=== PATIENT | female | born 1985 | race Caucasian/White ===

== ENCOUNTER 2016-09-21 02:00 | Emergency (ER) | payer BC, OTHER ==
[~2016-09-21] VITALS: Ht 182.9 cm; Wt 72.6 kg
[2016-09-21] MEDS ORDERED: NS IV 1000 ML 1,000 ML IV STA (02:27)
[2016-09-21] MEDS ORDERED: BUPR300T43 PO (02:27)
[2016-09-21] MEDS ORDERED: CLON1TAB PO (02:27)
[2016-09-21] MEDS ORDERED: CITA20TA12 PO (02:27)
[2016-09-21] MEDS ORDERED: LORazepam INJ 2 MG/ML (ATIVAN) VIAL IVP ONE ×2 (02:30→03:30)
[2016-09-21] MEDS ORDERED: ONDANSETRON 4 MG/2 ML (SDV) Z0FRAN IVP ONE (02:30)
[2016-09-21 02:45] LABS: BILIRUBIN,URINE NEGATIVE (NEGATIVE); KETONES,URINE NEGATIVE (NEGATIVE); LEUKOCYTE ESTERASE ,URINE 3+ (NEGATIVE); NITRITE,URINE POSITIVE (NEGATIVE); PH,URINE 7 (5-9); PROTEIN,URINE NEGATIVE (NEGATIVE); UROBILINOGEN,URINE NORMAL (NORMAL)
--- NOTE | 2016-09-21 02:45 | ED Psychosocial ---
General Chief Complaint: Psych/Social Disorder Stated Complaint: ANXIETY ATTACK,CHEST PAIN,SAUL Nursing Triage Note: PT REPORTS ANXIETY ATTACK STARTING AT 1800 TONIGHT. C/O HEADACHE ET NAUSEA/VOMITING. Source: patient Exam Limitations: no limitations History of Present Illness Time seen by provider: 02:10 Initial Comments Here with report of anxiety attack that started last evening and got worse in the night. She reports that her anxiety was so bad that she started vomiting. She does have medicines for anxiety but has a prescription that she needs to pick Today. Denies fever or chills. Does have history of anxiety and depression disorder and suicide. She does have anxiety but no suicidal plan. She is looking for resources in the community. Timing/Duration: yesterday, getting worse Severity: moderate Associated Symptoms: anxiety, suicidal ideation Allergies and Home Medications Allergies Coded Allergies: Sulfa (Sulfonamide Antibiotics) (Unverified Adverse Reaction, Unknown, ) ciprofloxacin (Unverified Adverse Reaction, Unknown, 09/21/16) Home Medications Alprazolam 0.5 Mg Tablet #7 0.5 MG PO Q12H PRN PRN ANXIETY Prescribed by: FAROOQ CONTRERAS on 09/21/16 0250 Bupropion HCl 300 Mg Tab.er.24h 300 MG PO DAILY (Reported) Cephalexin 500 Mg Tablet #14 500 MG PO BID Prescribed by: FAROOQ CONTRERAS on 09/21/16 0304 Citalopram Hydrobromide 20 Mg Tablet 20 MG PO DAILY (Reported) Clonazepam 1 Mg Tablet 1 MG PO BID (Reported) Constitutional: see HPINo chills, No fever EENTM: no symptoms reported Respiratory: no symptoms reported Cardiovascular: no symptoms reported Gastrointestinal: see HPI nausea vomiting Genitourinary: no symptoms reported Musculoskeletal: no symptoms reported Skin: no symptoms reported Psychiatric/Neurological: See HPI Anxiety Depressed Headache (from crying and from vomiting.) Past Kduhhce-Npysro-Vpqppj Hx Patient Social History Alcohol Use: Denies Use Recreational Drug Use: No Smoking Status: Current Everyday Smoker Recent Foreign Travel: No Contact w/Someone Who Travel: No Recent Infectious Disease Expo: No Recent Hopitalizations: No Seasonal Allergies Seasonal Allergies: Yes Surgeries HX Surgeries: No Respiratory Hx Respiratory Disorders: No Cardiovascular Hx Cardiac Disorders: Yes (MITRAL VALVE PROLAPSE) Neurological Hx Neurological Disorders: Yes Neurological Disorders: Headaches /Migraines Psychosocial Hx Psychiatric Problems: Yes Behavioral Health Disorders: Anxiety, PTSD Reviewed Nursing Assessment Reviewed/Agree w Nursing PMH: Yes Family Medical History Significant Family History: No Pertinent Family Hx Physical Exam Vital Signs Vital Sign - Last 12Hours 09/21/16 02:09 Temp 98.9 Pulse 60 Resp 20 B/P 127/85 Capillary Refill : Less Than 3 Seconds General Appearance: WD/WN no apparent distress HEENT: PERRL/EOMI pharynx normal Neck: full range of motion supple Respiratory: lungs clear normal breath sounds Cardiovascular: regular rate, rhythm no murmur Gastrointestinal: non tender soft Extremities: non-tender normal inspection Neurologic/Psychiatric: alert oriented x 3 Appearance/Memory: appropriate appearance appropriate insight Behavior/Eye Contact: cooperative good eye contact normal speech Thoughts/Hallucinations: normal thought pattern no apparent hallucination Skin: normal color warm/dry Progress/Results/Core Measures Results/Orders Lab Results Laboratory Tests Test 09/21/16 02:40 09/21/16 02:50 Range/Units Ur Tricyclic Antidepressants Screen NEGATIVE NEGATIVE Urine Amphetamines Screen NEGATIVE NEGATIVE Urine Bacteria LARGE H /HPF Urine Barbiturates Screen NEGATIVE NEGATIVE Urine Benzodiazepines Screen NEGATIVE NEGATIVE Urine Bilirubin NEGATIVE NEGATIVE Urine Cannabinoids Screen NEGATIVE NEGATIVE Urine Casts NONE /LPF Urine Clarity SLIGHTLY CLOUDY Urine Cocaine Screen NEGATIVE NEGATIVE Urine Color YELLOW Urine Crystals NONE /LPF Urine Culture Indicated YES Urine Glucose (UA) NEGATIVE NEGATIVE Urine Ketones NEGATIVE NEGATIVE Urine Leukocyte Esterase 3+ H NEGATIVE Urine Methadone Screen NEGATIVE NEGATIVE Urine Methamphetamines Screen NEGATIVE NEGATIVE Urine Mucus NEGATIVE /LPF Urine Nitrite POSITIVE H NEGATIVE Urine Opiates Screen NEGATIVE NEGATIVE Urine Oxycodone Screen NEGATIVE NEGATIVE Urine Phencyclidine Screen NEGATIVE NEGATIVE Urine Propoxyphene Screen NEGATIVE NEGATIVE Urine Protein NEGATIVE NEGATIVE Urine RBC NONE /HPF Urine RBC (Auto) NEGATIVE NEGATIVE Urine Specific [place] 1.010 L 1.016-1.022 Urine Squamous Epithelial Cells 10-25 H /HPF Urine Urobilinogen NORMAL NORMAL MG/DL Urine WBC 50-100 H /HPF Urine pH 7 5-9 Alanine Aminotransferase (ALT/SGPT) 12 0-55 U/L Albumin 4.4 3.2-4.5 G/DL Alkaline Phosphatase 67 40-136 U/L Anion Gap 11 5-14 MMOL/L Aspartate Amino Transf (AST/SGOT) 12 5-34 U/L BUN/Creatinine Ratio 10 Basophils # (Auto) 0.0 0.0-0.1 10^3/uL Basophils (%) (Auto) 1 0-10 % Blood Urea Nitrogen 8 7-18 MG/DL Calcium Level 9.2 8.5-10.1 MG/DL Carbon Dioxide Level 20 L 21-32 MMOL/L Chloride Level 107 98-107 MMOL/L Creatinine 0.81 0.60-1.30 MG/DL Eosinophils # (Auto) 0.4 H 0.0-0.3 10^3/uL Eosinophils (%) (Auto) 5 0-10 % Estimat Glomerular Filtration Rate > 60 Glucose Level 99 70-105 MG/DL Hematocrit 37 35-52 % Hemoglobin 13.0 11.5-16.0 G/DL Lymphocytes # (Auto) 2.0 1.0-4.0 X 10^3 Lymphocytes (%) (Auto) 29 12-44 % Mean Corpuscular Hemoglobin 31 25-34 PG Mean Corpuscular Hemoglobin Concent 35 32-36 G/DL Mean Corpuscular Volume 89 80-99 FL Mean Platelet Volume 11.0 H 7.4-10.4 FL Monocytes # (Auto) 0.8 0.0-1.0 X 10^3 Monocytes (%) (Auto) 12 0-12 % Neutrophils # (Auto) 3.9 1.8-7.8 X 10^3 Neutrophils (%) (Auto) 54 42-75 % Platelet Count 225 130-400 10^3/uL Potassium Level 4.4 3.6-5.0 MMOL/L Red Blood Count 4.15 L 4.35-5.85 10^6/uL Red Cell Distribution Width 13.1 10.0-14.5 % Sodium Level 138 135-145 MMOL/L Total Bilirubin 0.5 0.1-1.0 MG/DL Total Protein 6.8 6.4-8.2 G/DL White Blood Count 7.2 4.3-11.0 10^3/uL My Orders Orders-FAROOQ CONTRERAS MD Cbc With Automated Diff (09/21/16 02:27) Comprehensive Metabolic Panel (09/21/16 02:27) Drug Screen Stat (Urine) (09/21/16 02:27) Ua Culture If Indicated (09/21/16 02:27) Ondansetron Injection (Zofran Injectio (09/21/16 02:30) Ns Iv 1000 Ml (Sodium Chloride 0.9%) (09/21/16 02:27) Lorazepam Injection (Ativan Injection) (09/21/16 02:30) Urine Bedside (09/21/16 02:30) Urine Culture (09/21/16 02:40) Ceftriaxone Injection (Rocephin Injectio (09/21/16 03:15) Lorazepam Injection (Ativan Injection) (09/21/16 03:30) Medications Given in ED Current Medications Medications Dose Ordered Sig/Cipriano Route Start Time Stop Time Status Last Admin Dose Admin Ceftriaxone Sodium/Sodium Chloride 50 ml @ 100 mls/hr ONCE ONCE IV 09/21/16 03:15 09/21/16 03:44 DC 09/21/16 03:19 100 MLS/HR Lorazepam 1 mg ONCE ONCE IVP 09/21/16 03:30 09/21/16 03:31 DC 09/21/16 03:26 1 MG Lorazepam 1 mg 1 mg ONCE ONCE IVP 09/21/16 02:30 09/21/16 02:31 DC 09/21/16 02:51 1 MG Ondansetron HCl 4 mg ONCE ONCE IVP 09/21/16 02:30 09/21/16 02:31 DC 09/21/16 02:49 4 MG Vital Signs/I&O Vital Sign - Last 12Hours 09/21/16 02:09 Temp 98.9 Pulse 60 Resp 20 B/P 127/85 Blood Pressure Mean: 99 Progress Note : Progress Note Seen and evaluated. IV, labs and UA ordered. Normal saline 1 L bolus. Zofran 4 mg IV. Ativan 1 mg IV. Monitor patient. Rocephin 1 g IV for UTI noted. Monitor patient. Repeat Ativan 1 mg IV ordered for continued anxiety. 0415: Much improved but still has mild headache. Toradol 30 mg IV. Discharged home with return precautions. Patient verbalize understanding instructions and agreement with plan. In discussion of doctors, patient states that she would like to switch and had the name of Dr. Chad Vázquez. She would like to follow- up with him. I will give his phone number to her on the discharge instructions. Copy of chart for Dr. Vázquez so he knows what had happened tonight as she is planning on calling him first thing in the morning. Discharged home with return precautions. Patient verbalize understanding instructions and agreement with plan. Departure Impression Impression: Primary Impression: Anxiety Additional Impression: Depression Qualified Code: F32.9 - Major depressive disorder, single episode, unspecified Disposition: 01 HOME, SELF-CARE Condition: Stable Departure-Patient Inst. Decision time for Depature: 02:47 Referrals: DYLON ORTIZ DO (PCP) Primary Care Physician CHAD VÁZQUEZ MD Patient Instructions: Depression, Adult (DC), Panic Disorder (DC), Urinary Tract Infections in Adults Add. Discharge Instructions: All discharge instructions reviewed with patient and/or family. Voiced understanding. Take medications as directed. Follow-up with your doctor for recheck and further evaluation. Call [facility] for referral. You may call the [employer] line for assistance and referral to [facility]. Return for pain, weakness, vomiting, thoughts of suicide, markedly increasing depression or anxiety or other concerns as needed. Scripts Cephalexin 500 Mg [id number] Mg PO BID #14 TAB Prov:FAROOQ CONTRERAS MD 09/21/16 Alprazolam (Xanax)0.5 Mg Tablet0.5 Mg PO Q12H PRN ANXIETY #7 TAB Ref 0 Prov:FAROOQ CONTRERAS MD 09/21/16 FAROOQ CONRTERAS MD Sep 21, 2016 02:45
[2016-09-21] MEDS ORDERED: ALPR0.5T PO (02:50)
[2016-09-21 02:53] LABS: WBC,URINE 50-100 /HPF
[2016-09-21 02:59] LABS: BASOPHILS % (AUTO) 1 % (0-10); EOSINOPHILS # (AUTO) 0.4 10^3/uL (0.0-0.3); EOSINOPHILS % (AUTO) 5 % (0-10); LYMPHOCYTES % (AUTO) 29 % (12-44); MEAN CORPUSCULAR HEMOGLOBIN 31 PG (25-34); MEAN CORPUSCULAR HGB CONC 35 G/DL (32-36); MEAN CORPUSCULAR VOLUME 89 FL (80-99); MONOCYTES # (AUTO) 0.8 X 10^3 (0.0-1.0); MONOCYTES % (AUTO) 12 % (0-12); NEUTROPHILS # (AUTO) 3.9 X 10^3 (1.8-7.8); NEUTROPHILS % (AUTO) 54 % (42-75); PLATELET COUNT 225 10^3/uL (130-400); RED BLOOD COUNT 4.15 10^6/uL (4.35-5.85); RED CELL DISTRIBUTION WIDTH 13.1 % (10.0-14.5); WHITE BLOOD COUNT 7.2 10^3/uL (4.3-11.0)
[2016-09-21] MEDS ORDERED: CEPH500T PO (03:04)
[2016-09-21] MEDS ORDERED: cefTRIAXone INJECTION 1,000 MG in NS (IVPB) 50 ML IV ONE (03:15)
[2016-09-21 03:18] LABS: ALANINE AMINOTRANSFERASE 12 U/L (0-55); ANION GAP 11 MMOL/L (5-14); ASPARTATE AMINO TRANSFERASE 12 U/L (5-34); BILIRUBIN,TOTAL 0.5 MG/DL (0.1-1.0); BLOOD UREA NITROGEN 8 MG/DL (7-18); BUN/CREATININE RATIO 10; CALCIUM 9.2 MG/DL (8.5-10.1); CARBON DIOXIDE 20 MMOL/L (21-32); CHLORIDE 107 MMOL/L (98-107); CREATININE SERUM 0.81 MG/DL (0.60-1.30); GFR ESTIMATED > 60; GLUCOSE 99 MG/DL (70-105); POTASSIUM 4.4 MMOL/L (3.6-5.0); SODIUM 138 MMOL/L (135-145); TOTAL PROTEIN 6.8 G/DL (6.4-8.2)
[2016-09-21 03:19] LABS: ALBUMIN 4.4 G/DL (3.2-4.5)
[2016-09-21] MEDS ORDERED: KETOROLAC 30 MG/ML VIAL IVP STA (04:15)
[2016-09-21 04:44] VITALS: BP 114/66
== END 2016-09-21 04:44 | disposition home or self-care (01) ==
LOC: ER 02:04
DX: F41.9 Anxiety disorder, unspecified (principal); F32.9 Major depressive disorder, single episode, unspecified; F17.210 Nicotine dependence, cigarettes, uncomplicated; Z79.899 Other long term (current) drug therapy
CPT/HCPCS: 36415; 80053; 80306; 81000; 84703; 85025; 87088; 96361; 96365; 96375; 96376

== ENCOUNTER 2016-09-23 20:24 | Emergency (ER) | payer BC ==
[~2016-09-23] VITALS: Ht 182.9 cm; Wt 63.5 kg
[~2016-09-23 20:24] MED LIST: ALPR0.5T PO; BUPR300T43 PO; CEPH500T PO; CITA20TA12 PO; CLON1TAB PO
--- OUTSIDE RECORDS SUMMARY | 2016-09-23 20:30 | XMS REPORT | Continuity of Care Document ---
Author Author [facility] Organization [facility] Address Unknown Phone Unavailable Care Team Providers Care Car Scrubber Name Role Phone DYLON ORTIZ DO PCP Insurance Providers Payer Name Policy Number Subscriber Name Relationship [facility] [id number] Mario Du 18 Self / Same As Patient Advance Directives Directive Response Recorded Date/Time Advance Directives No 09/21/16 2:11am Resuscitation Status Full Code 09/21/16 2:11am Chief Complaint and Reason for Visit Chief Complaint Psych/Social Disorder Reason for Visit Anxiety Depression Problems Active Problems Medical Problem Onset Date Status Anxiety Unknown Acute Depression Unknown Acute Medications Current Home Medications Medication Dose Units Route Directions Days/Qty Instructions Start Date Clonazepam 1 Mg 1 Mg Oral Twice A Day 09/21/16 Bupropion Hcl 300 Mg 300 Mg Oral Daily 09/21/16 Citalopram Hydrobromide 20 Mg 20 Mg Oral Daily 09/21/16 Alprazolam 0.5 Mg 0.5 Mg Oral Every 12 Hours as needed for Anxiety 7 09/21/16 Cephalexin 500 Mg 500 Mg Oral Twice A Day 14 09/21/16 Social History Social History Problem Response Recorded Date/Time Alcohol Use Denies Use 09/21/2016 2:11am Recreational Drug Use No 09/21/2016 2:11am Recent Foreign Travel No 09/21/2016 2:09am Recent Infectious Disease Exposure No 09/21/2016 2:09am Smoking Status Current Everyday Smoker 09/21/2016 2:11am Recent Hopitalizations No 09/21/2016 2:11am Query Response Start Date Stop Date Smoking Status Current Everyday Smoker Hospital Discharge Instructions No hospital discharge instructions. Plan of Care Discharge Date 09/21/16 4:44am Disposition 01 HOME, SELF-CARE Condition at Discharge Stable Instructions/Education Provided Urinary Tract Infections in Adults Depression, Adult (DC) Panic Disorder (DC) Prescriptions See Medication Section Referrals DYLON ORTIZ DO - Primary Care Physician JUDY VÁZQUEZ MD - Additional Instructions/Education All discharge instructions reviewed with patient and/or family. Voiced understanding. Take medications as directed. Follow-up with your doctor for recheck and further evaluation. Call [facility] for referral. You may call the [phone] line for assistance and referral to [facility]. Return for pain, weakness, vomiting, thoughts of suicide, markedly increasing depression or anxiety or other concerns as needed. Functional Status No functional status results. Allergies, Adverse Reactions, Alerts Allergen Type Severity Reaction Status Last Updated Sulfa (Sulfonamide Antibiotics) ([id number]) Adverse Reaction Unknown Active 09/21/16 ciprofloxacin ([id number]) Adverse Reaction Unknown Active 09/21/16 Immunizations No immunization records. Vital Signs Acute Vital Signs Vital Response Date/Time Temperature (Fahrenheit) 98.9 degrees F (97.6 - 99.5) 09/21/2016 2:09am Temperature (Calculated Celsius) 37.85612 degrees C (36.4 - 37.5) 09/21/2016 2:09am Temperature Source Temporal 09/21/2016 2:09am Pulse Rate (adult) 54 bpm (60 - 90) 09/21/2016 4:44am Respiratory Rate 14 bpm (12 - 24) 09/21/2016 4:44am O2 Sat by Pulse Oximetry 100 % (88 - 100) 09/21/2016 4:44am Blood Pressure 114/66 mm Hg 09/21/2016 4:44am Blood Pressure Mean 99 mm Hg 09/21/2016 2:09am Pain Numeric Pain Scale 6 09/21/2016 4:44am Height (Feet) 6 feet 09/21/2016 2:09am Height (Calculated Centimeters) 182.481269 cm 09/21/2016 2:09am Weight (Pounds) 160 pounds 09/21/2016 2:09am Weight (Calculated Kilograms) 72.824183 kilograms 09/21/2016 2:09am Capillary Refill Capillary Refill Less Than 3 Seconds 09/21/2016 2:09am Height 6 ft 0 in Weight 160 lb Body Mass Index 21.7 kg/m^2 Results Laboratory Results Test Name Result Units Flags Reference Collection Date/Time Result Date/ Time Comments White Blood Count 7.2 10^3/uL 4.3-11.0 09/21/2016 2:50am 09/21/2016 3: 01am Red Blood Count 4.15 10^6/uL L 4.35-5.85 09/21/2016 2:50am 09/21/2016 3: 01am Hemoglobin 13.0 G/DL 11.5-16.0 09/21/2016 2:50am 09/21/2016 3:01am Hematocrit 37 % 35-52 09/21/2016 2:50am 09/21/2016 3:01am Mean Corpuscular Volume 89 FL 80-99 09/21/2016 2:50am 09/21/2016 3: 01am Mean Corpuscular Hemoglobin 31 PG 25-34 09/21/2016 2:50am 09/21/2016 3: 01am Mean Corpuscular Hemoglobin Concent 35 G/DL 32-36 09/21/2016 2:50am 3:01am Red Cell Distribution Width 13.1 % 10.0-14.5 09/21/2016 2:50am 2016 3:01am Platelet Count 225 10^3/uL 130-400 09/21/2016 2:50am 09/21/2016 3:01am Mean Platelet Volume 11.0 FL H 7.4-10.4 09/21/2016 2:50am 09/21/2016 3: 01am Neutrophils (%) (Auto) 54 % 42-75 09/21/2016 2:50am 09/21/2016 3:01am Lymphocytes (%) (Auto) 29 % 12-44 09/21/2016 2:50am 09/21/2016 3:01am Monocytes (%) (Auto) 12 % 0-12 09/21/2016 2:50am 09/21/2016 3:01am Eosinophils (%) (Auto) 5 % 0-10 09/21/2016 2:50am 09/21/2016 3:01am Basophils (%) (Auto) 1 % 0-10 09/21/2016 2:50am 09/21/2016 3:01am Neutrophils # (Auto) 3.9 X 10^3 1.8-7.8 09/21/2016 2:50am 09/21/2016 3: 01am Lymphocytes # (Auto) 2.0 X 10^3 1.0-4.0 09/21/2016 2:50am 09/21/2016 3: 01am Monocytes # (Auto) 0.8 X 10^3 0.0-1.0 09/21/2016 2:50am 09/21/2016 3: 01am Eosinophils # (Auto) 0.4 10^3/uL H 0.0-0.3 09/21/2016 2:50am 09/21/2016 3 :01am Basophils # (Auto) 0.0 10^3/uL 0.0-0.1 09/21/2016 2:50am 09/21/2016 3: 01am Urine Color YELLOW 09/21/2016 2:40am 09/21/2016 2:53am Urine Clarity SLIGHTLY CLOUDY 09/21/2016 2:40am 09/21/2016 2:53am Urine pH 7 5-9 09/21/2016 2:40am 09/21/2016 2:53am Urine Specific [place] 1.010 * 1.016-1.022 09/21/2016 2:40am 2016 2:53am Urine Protein NEGATIVE NEGATIVE 09/21/2016 2:40am 09/21/2016 2:53am Urine Glucose (UA) NEGATIVE NEGATIVE 09/21/2016 2:40am 09/21/2016 2: 53am Urine RBC (Auto) NEGATIVE NEGATIVE 09/21/2016 2:40am 09/21/2016 2: 53am Urine Ketones NEGATIVE NEGATIVE 09/21/2016 2:40am 09/21/2016 2:53am Urine Nitrite POSITIVE * NEGATIVE 09/21/2016 2:40am 09/21/2016 2:53am Urine Bilirubin NEGATIVE NEGATIVE 09/21/2016 2:40am 09/21/2016 2: 53am Urine Urobilinogen NORMAL MG/DL NORMAL 09/21/2016 2:40am 09/21/2016 2: 53am Urine Leukocyte Esterase 3+ * NEGATIVE 09/21/2016 2:40am 09/21/2016 2: 53am Urine RBC NONE /HPF 09/21/2016 2:40am 09/21/2016 2:53am Urine WBC 50-100 /HPF * 09/21/2016 2:40am 09/21/2016 2:53am Urine Bacteria LARGE /HPF * 09/21/2016 2:40am 09/21/2016 2:53am Urine Squamous Epithelial Cells 10-25 /HPF * 09/21/2016 2:40am 2016 2:53am Urine Crystals NONE /LPF 09/21/2016 2:40am 09/21/2016 2:53am Urine Casts NONE /LPF 09/21/2016 2:40am 09/21/2016 2:53am Urine Mucus NEGATIVE /LPF 09/21/2016 2:40am 09/21/2016 2:53am Urine Culture Indicated YES 09/21/2016 2:40am 09/21/2016 2:53am Sodium Level 138 MMOL/L 135-145 09/21/2016 2:50am 09/21/2016 3:19am Potassium Level 4.4 MMOL/L 3.6-5.0 09/21/2016 2:50am 09/21/2016 3:19am Chloride Level 107 MMOL/L 98-107 09/21/2016 2:50am 09/21/2016 3:19am Carbon Dioxide Level 20 MMOL/L L 21-32 09/21/2016 2:50am 09/21/2016 3: 19am Anion Gap 11 MMOL/L 5-14 09/21/2016 2:50am 09/21/2016 3:19am Blood Urea Nitrogen 8 MG/DL 7-18 09/21/2016 2:50am 09/21/2016 3:19am Creatinine 0.81 MG/DL 0.60-1.30 09/21/2016 2:50am 09/21/2016 3:19am BUN/Creatinine Ratio 10 09/21/2016 2:50am 09/21/2016 3:19am Estimat Glomerular Filtration Rate > 60 09/21/2016 2:50am 2016 3:19am GFR INTERPRETIVE DATA UNITS FOR ESTIMATED GFR (eGFR): mL/min/1.73 M2 REFERENCE RANGE FOR ESTIMATED GFR (eGFR) eGFR NORMAL eGFR >60 MODERATELY DECREASED eGFR 30-59 SEVERLY DECREASED eGFR 15-29 KIDNEY FAILURE <15 (OR DIALYSIS) Glucose Level 99 MG/DL 70-105 09/21/2016 2:50am 09/21/2016 3:19am Calcium Level 9.2 MG/DL 8.5-10.1 09/21/2016 2:50am 09/21/2016 3:19am Total Bilirubin 0.5 MG/DL 0.1-1.0 09/21/2016 2:50am 09/21/2016 3:19am Alkaline Phosphatase 67 U/L 40-136 09/21/2016 2:50am 09/21/2016 3:19am Aspartate Amino Transf (AST/SGOT) 12 U/L 5-34 09/21/2016 2:50am 2016 3:19am Alanine Aminotransferase (ALT/SGPT) 12 U/L 0-55 09/21/2016 2:50am 09/21 3:19am Total Protein 6.8 G/DL 6.4-8.2 09/21/2016 2:50am 09/21/2016 3:19am Albumin 4.4 G/DL 3.2-4.5 09/21/2016 2:50am 09/21/2016 3:19am Procedures No known history of procedures. Encounters Encounter Location Arrival/Admit Date Discharge/Depart Date Attending Provider Departed Emergency Room [facility] 09/21/16 2:04am 09/21 4:44am FAROOQ CONTRERAS MD Recent Diagnosis
--- NOTE | 2016-09-23 21:07 | ED Psychosocial ---
General Chief Complaint: Psych/Social Disorder Stated Complaint: PANIC ATTACK Nursing Triage Note: PT TO ED 7 W/ S.O. FOR C/O ANXIETY, DEPRESSION, PTSD, FLASHBACKS ONSET OVER PAST FEW DAYS, WORSE TODAY. REPORTS RECENTLY GOT OUT OF ABUSIVE RELATIONSHIP, STATES SHE HAS BEEN "DOING BETTER" UNTIL "SOMETHING AT WORK SET HER OFF." STATES SHE' S LOOKED INTO INPATIENT THERAPY IN [facility] SHE "DOESN'T KNOW WHAT TO DO." Source: patient Exam Limitations: no limitations History of Present Illness Time seen by provider: 21:05 Initial Comments To ER with reports of anxiety and depression. States that she moved to the area from [place] a few months back. She's had persistent anxiety and depression since then. She is on Klonopin and was seen here 2 days ago and given Xanax. She has been calling the save line today to talk to somebody. She is open to the idea of inpatient therapy but would prefer ultimately to pursue outpatient therapy. She has an appointment with Dr. Chad Dow in 2 days. In regards to The Xanax that she was given here 2-3 days ago she states she has not been taking them in his back does not know where they are. She denies suicidal thoughts or homicidal thoughts. Timing/Duration: just prior to arrival Associated Symptoms: anxiety, impaired concentration Allergies and Home Medications Allergies Coded Allergies: Sulfa (Sulfonamide Antibiotics) (Unverified Adverse Reaction, Unknown, ) ciprofloxacin (Unverified Adverse Reaction, Unknown, 09/21/16) Home Medications Alprazolam 0.5 Mg Tablet #7 0.5 MG PO Q12H PRN PRN ANXIETY Prescribed by: FAROOQ CONTRERAS on 09/21/16 0250 Bupropion HCl 300 Mg Tab.er.24h 300 MG PO DAILY (Reported) Cephalexin 500 Mg Tablet #14 500 MG PO BID Prescribed by: FAROOQ CONTRERAS on 09/21/16 0304 Citalopram Hydrobromide 20 Mg Tablet 20 MG PO DAILY (Reported) Clonazepam 1 Mg Tablet 1 MG PO BID (Reported) Constitutional: see HPI EENTM: see HPI Respiratory: no symptoms reported Cardiovascular: no symptoms reported Genitourinary: no symptoms reported Musculoskeletal: no symptoms reported Skin: no symptoms reported Psychiatric/Neurological: See HPI Anxiety Past Cusrbyq-Zsmyly-Ycmwry Hx Patient Social History Alcohol Use: Denies Use Recreational Drug Use: No Smoking Status: Current Everyday Smoker Type Used: Cigarettes Recent Foreign Travel: No Contact w/Someone Who Travel: No Recent Infectious Disease Expo: No Recent Hopitalizations: No Seasonal Allergies Seasonal Allergies: Yes Surgeries HX Surgeries: No Respiratory Hx Respiratory Disorders: No Cardiovascular Hx Cardiac Disorders: Yes (MITRAL VALVE PROLAPSE) Neurological Hx Neurological Disorders: Yes Neurological Disorders: Headaches /Migraines Psychosocial Hx Psychiatric Problems: Yes Behavioral Health Disorders: Anxiety, PTSD, Depression Family Medical History Significant Family History: No Pertinent Family Hx Physical Exam Vital Signs Vital Sign - Last 12Hours 09/23/16 20:34 Temp 97.1 Pulse 58 Resp 24 B/P 137/90 Pulse Ox 100 O2 Delivery Room Air Capillary Refill : Less Than 3 Seconds General Appearance: WD/WN no apparent distress HEENT: PERRL/EOMI normal ENT inspection Neck: non-tender full range of motion Respiratory: no respiratory distress no accessory muscle use Gastrointestinal: normal bowel sounds non tender soft Neurologic/Psychiatric: alert normal mood/affect oriented x 3 Appearance/Memory: appropriate appearance appropriate insight Behavior/Eye Contact: cooperative good eye contact Thoughts/Hallucinations: normal thought pattern no apparent hallucination Skin: normal color warm/dry Progress/Results/Core Measures Results/Orders Lab Results Laboratory Tests Test 09/23/16 21:00 09/23/16 21:22 Range/Units Acetaminophen Level < 10 L 10-30 UG/ML Alanine Aminotransferase (ALT/SGPT) 8 0-55 U/L Albumin 4.2 3.2-4.5 G/DL Alkaline Phosphatase 58 40-136 U/L Anion Gap 9 5-14 MMOL/L Aspartate Amino Transf (AST/SGOT) 11 5-34 U/L BUN/Creatinine Ratio 10 Basophils # (Auto) 0.0 0.0-0.1 10^3/uL Basophils (%) (Auto) 1 0-10 % Blood Urea Nitrogen 8 7-18 MG/DL Calcium Level 8.7 8.5-10.1 MG/DL Carbon Dioxide Level 21 21-32 MMOL/L Chloride Level 110 H 98-107 MMOL/L Creatinine 0.83 0.60-1.30 MG/DL Eosinophils # (Auto) 0.5 H 0.0-0.3 10^3/uL Eosinophils (%) (Auto) 6 0-10 % Estimat Glomerular Filtration Rate > 60 Glucose Level 89 70-105 MG/DL Hematocrit 37 35-52 % Hemoglobin 12.7 11.5-16.0 G/DL Lymphocytes # (Auto) 2.0 1.0-4.0 X 10^3 Lymphocytes (%) (Auto) 25 12-44 % Mean Corpuscular Hemoglobin 31 25-34 PG Mean Corpuscular Hemoglobin Concent 35 32-36 G/DL Mean Corpuscular Volume 89 80-99 FL Mean Platelet Volume 10.5 H 7.4-10.4 FL Monocytes # (Auto) 0.9 0.0-1.0 X 10^3 Monocytes (%) (Auto) 11 0-12 % Neutrophils # (Auto) 4.7 1.8-7.8 X 10^3 Neutrophils (%) (Auto) 58 42-75 % Platelet Count 237 130-400 10^3/uL Potassium Level 3.9 3.6-5.0 MMOL/L Red Blood Count 4.09 L 4.35-5.85 10^6/uL Red Cell Distribution Width 12.8 10.0-14.5 % Salicylates Level < 5.0 L 5.0-20.0 MG/DL Serum Alcohol < 10 <10 MG/DL Sodium Level 140 135-145 MMOL/L Thyroid Stimulating Hormone (TSH) 1.68 0.35-4.94 UIU/ML Total Bilirubin 0.3 0.1-1.0 MG/DL Total Protein 6.7 6.4-8.2 G/DL White Blood Count 8.0 4.3-11.0 10^3/uL Ur Tricyclic Antidepressants Screen NEGATIVE NEGATIVE Urine Amphetamines Screen NEGATIVE NEGATIVE Urine Bacteria TRACE /HPF Urine Barbiturates Screen NEGATIVE NEGATIVE Urine Benzodiazepines Screen POSITIVE H NEGATIVE Urine Bilirubin NEGATIVE NEGATIVE Urine Cannabinoids Screen NEGATIVE NEGATIVE Urine Casts NONE /LPF Urine Clarity CLEAR Urine Cocaine Screen NEGATIVE NEGATIVE Urine Color YELLOW Urine Crystals NONE /LPF Urine Culture Indicated NO Urine Glucose (UA) NEGATIVE NEGATIVE Urine Ketones NEGATIVE NEGATIVE Urine Leukocyte Esterase 1+ H NEGATIVE Urine Methadone Screen NEGATIVE NEGATIVE Urine Methamphetamines Screen NEGATIVE NEGATIVE Urine Mucus NEGATIVE /LPF Urine Nitrite NEGATIVE NEGATIVE Urine Opiates Screen NEGATIVE NEGATIVE Urine Oxycodone Screen NEGATIVE NEGATIVE Urine Phencyclidine Screen NEGATIVE NEGATIVE Urine Test NEGATIVE NEGATIVE Urine Propoxyphene Screen NEGATIVE NEGATIVE Urine Protein NEGATIVE NEGATIVE Urine RBC NONE /HPF Urine RBC (Auto) NEGATIVE NEGATIVE Urine Specific [place] 1.005 L 1.016-1.022 Urine Squamous Epithelial Cells 10-25 H /HPF Urine Urobilinogen NORMAL NORMAL MG/DL Urine WBC 0-2 /HPF Urine pH 7 5-9 My Orders Orders-SWATI TUCKER APRN Cbc With Automated Diff (09/23/16 20:57) Comprehensive Metabolic Panel (09/23/16 20:57) Thyroid Stimulating Hormone (09/23/16 20:57) Ua Culture If Indicated (09/23/16 20:57) Drug Screen Stat (Urine) (09/23/16 20:57) Ekg Tracing (09/23/16 20:57) Hcg,Qualitative Urine (09/23/16 20:57) Salicylate (09/23/16 20:57) Acetaminophen (09/23/16 20:57) Alcohol (09/23/16 20:57) Ondansetron Oral Dissolve Tab (Zofran (09/23/16 21:15) Alprazolam Tablet (Xanax Tablet) (09/23/16 21:15) Ketorolac Injection (Toradol Injection) (09/23/16 21:45) Diphenhydramine Injection (Benadryl Inje (09/23/16 22:00) Medications Given in ED Current Medications Medications Dose Ordered Sig/Cipriano Route Start Time Stop Time Status Last Admin Dose Admin Diphenhydramine HCl 50 mg ONCE ONCE IM 09/23/16 22:00 09/23/16 22:01 DC 09/23/16 21:57 50 MG Ketorolac Tromethamine 60 mg ONCE ONCE IM 09/23/16 21:45 09/23/16 21:46 DC 09/23/16 21:57 60 MG Ondansetron HCl 4 mg ONCE ONCE PO 09/23/16 21:15 09/23/16 21:16 DC 09/23/16 21:20 4 MG Vital Signs/I&O Vital Sign - Last 12Hours 09/23/16 20:34 Temp 97.1 Pulse 58 Resp 24 B/P 137/90 Pulse Ox 100 O2 Delivery Room Air Blood Pressure Mean: 106 Departure Communication Progress Notes 2200-She complained of headaches with Toradol and Benadryl were given intramuscularly. She was still preferred to follow-up with Dr. Dow the outpatient setting Impression Impression: Primary Impression: Anxiety Disposition: HOME, SELF-CARE Condition: Stable Departure-Patient Inst. Decision time for Depature: 22:25 Referrals: CHAD VÁZQUEZ MD (PCP/Family) Primary Care Physician Patient Instructions: Anxiety, Adult (DC) Add. Discharge Instructions: 1. Return to ER for any concerns 2. Follow-up with your doctor next week 3. Medication as directed All discharge instructions reviewed with patient and/or family. Voiced understanding. Scripts Hydroxyzine Pamoate (Vistaril)25 Mg [id number] Mg PO TID PRN ANXIETY #9 CAP Prov:SWATI TUCKER APRN 09/23/16 Copy Copies To 1: CHAD VÁZQUEZ MD, PETER J APRN Sep 23, 2016 21:07
[2016-09-23 21:08] LABS: BASOPHILS % (AUTO) 1 % (0-10); EOSINOPHILS # (AUTO) 0.5 10^3/uL (0.0-0.3); EOSINOPHILS % (AUTO) 6 % (0-10); LYMPHOCYTES % (AUTO) 25 % (12-44); MEAN CORPUSCULAR HEMOGLOBIN 31 PG (25-34); MEAN CORPUSCULAR HGB CONC 35 G/DL (32-36); MEAN CORPUSCULAR VOLUME 89 FL (80-99); MEAN PLATELET VOLUME 10.5 FL (7.4-10.4); MONOCYTES # (AUTO) 0.9 X 10^3 (0.0-1.0); MONOCYTES % (AUTO) 11 % (0-12); NEUTROPHILS # (AUTO) 4.7 X 10^3 (1.8-7.8); NEUTROPHILS % (AUTO) 58 % (42-75); PLATELET COUNT 237 10^3/uL (130-400); RED BLOOD COUNT 4.09 10^6/uL (4.35-5.85); RED CELL DISTRIBUTION WIDTH 12.8 % (10.0-14.5)
[2016-09-23] MEDS ORDERED: ALPRAZolam 0.5 MG (XANAX) TAB PO SCH (21:15)
[2016-09-23] MEDS ORDERED: ONDANSETRON 4 MG (ZOFRAN) ORAL DISSOLVE TAB PO ONE (21:15)
[2016-09-23 21:28] LABS: BILIRUBIN,URINE NEGATIVE (NEGATIVE); KETONES,URINE NEGATIVE (NEGATIVE); LEUKOCYTE ESTERASE ,URINE 1+ (NEGATIVE); NITRITE,URINE NEGATIVE (NEGATIVE); PH,URINE 7 (5-9); PROTEIN,URINE NEGATIVE (NEGATIVE); UROBILINOGEN,URINE NORMAL (NORMAL)
[2016-09-23 21:29] LABS: ALANINE AMINOTRANSFERASE 8 U/L (0-55); ALBUMIN 4.2 G/DL (3.2-4.5); ANION GAP 9 MMOL/L (5-14); ASPARTATE AMINO TRANSFERASE 11 U/L (5-34); BILIRUBIN,TOTAL 0.3 MG/DL (0.1-1.0); BLOOD UREA NITROGEN 8 MG/DL (7-18); BUN/CREATININE RATIO 10; CALCIUM 8.7 MG/DL (8.5-10.1); CARBON DIOXIDE 21 MMOL/L (21-32); CHLORIDE 110 MMOL/L (98-107); CREATININE SERUM 0.83 MG/DL (0.60-1.30); GFR ESTIMATED > 60; GLUCOSE 89 MG/DL (70-105); POTASSIUM 3.9 MMOL/L (3.6-5.0); SALICYLATE < 5.0 MG/DL (5.0-20.0); SODIUM 140 MMOL/L (135-145); TOTAL PROTEIN 6.7 G/DL (6.4-8.2)
[2016-09-23 21:32] LABS: ACETAMINOPHEN < 10 UG/ML (10-30); ALCOHOL < 10 MG/DL (<10)
[2016-09-23 21:36] LABS: WBC,URINE 0-2 /HPF
[2016-09-23] MEDS ORDERED: KETOROLAC 60 MG/2 ML VIAL IM ONE (21:45)
[2016-09-23 21:48] LABS: THYROID STIMULATING HORMONE 1.68 UIU/ML (0.35-4.94)
[2016-09-23] MEDS ORDERED: diphenhydrAMINE 50 MG/ML INJ (BENADRYL) IM ONE (22:00)
[2016-09-23] MEDS ORDERED: HYDR25CA PO (22:27)
[2016-09-23 22:55] VITALS: BP 123/78
== END 2016-09-23 22:55 | disposition home or self-care (01) ==
LOC: EDUNIT# 20:24 → ER 20:26
DX: F41.9 Anxiety disorder, unspecified (principal); F32.9 Major depressive disorder, single episode, unspecified; F43.10 Post-traumatic stress disorder, unspecified; F17.210 Nicotine dependence, cigarettes, uncomplicated; Z79.899 Other long term (current) drug therapy
CPT/HCPCS: 36415; 80053; 80306; 80320; 80329; 81000; 84443; 84703; 85025; 93005; 96372; 99283

== ENCOUNTER 2016-09-24 21:35 | Emergency (ER) | payer BC ==
[~2016-09-24] VITALS: Ht 182.9 cm; Wt 61.2 kg
[~2016-09-24 21:35] MED LIST changes: +HYDR25CA PO
--- OUTSIDE RECORDS SUMMARY | 2016-09-24 21:39 | XMS REPORT | Continuity of Care Document ---
Author Author [facility] Organization [facility] Address Unknown Phone Unavailable Care Team Providers Care Rn Research Name Role Phone DYLON ORTIZ DO PCP Insurance Providers Payer Name Policy Number Subscriber Name Relationship [facility] [id number] Mario Du 16 Self / Same As [...] doctor for recheck and further evaluation. Call [facility] for referral. You may call the [phone] line for assistance and referral to [facility]. Return for pain, weakness, vomiting, thoughts of suicide, markedly increasing depression or anxiety or other concerns as needed. Functional Status No functional status results. Allergies, Adverse Reactions, Alerts Allergen Type Severity Reaction Status Last Updated Sulfa (Sulfonamide Antibiotics) ([id number]) Adverse Reaction Unknown Active 09/21/16 ciprofloxacin ([id number]) Adverse Reaction Unknown Active 09/21/16 Immunizations No immunization records. Vital Signs Acute Vital Signs Vital Response Date/Time Temperature (Fahrenheit) 98.9 degrees F (97.6 - 99.5) 09/21/2016 2:09am Temperature (Calculated Celsius) 37.05485 degrees C (36.4 - 37.5) 09/21/2016 2:09am [...] 6 feet 09/21/2016 2:09am Height (Calculated Centimeters) 182.269830 cm 09/21/2016 2:09am Weight (Pounds) 160 pounds 09/21/2016 2:09am Weight (Calculated Kilograms) 72.554768 kilograms 09/21/2016 2:09am Capillary Refill Capillary Refill [...] 5-9 09/21/2016 2:40am 09/21/2016 2:53am Urine Specific [place] 1.010 * 1.016-1.022 09/21/2016 2:40am 2016 2:53am [...] Date Attending Provider Departed Emergency Room [facility] 09/21/16 2:04am 09/21 4:44am FAROOQ CONTRERAS MD Recent Diagnosis
[2016-09-24 23:51] LABS: BASOPHILS % (AUTO) 0 % (0-10); EOSINOPHILS # (AUTO) 0.5 10^3/uL (0.0-0.3); EOSINOPHILS % (AUTO) 7 % (0-10); LYMPHOCYTES # (AUTO) 2.1 X 10^3 (1.0-4.0); LYMPHOCYTES % (AUTO) 27 % (12-44); MEAN CORPUSCULAR HEMOGLOBIN 31 PG (25-34); MEAN CORPUSCULAR HGB CONC 35 G/DL (32-36); MEAN CORPUSCULAR VOLUME 90 FL (80-99); MONOCYTES # (AUTO) 0.9 X 10^3 (0.0-1.0); MONOCYTES % (AUTO) 11 % (0-12); NEUTROPHILS # (AUTO) 4.2 X 10^3 (1.8-7.8); NEUTROPHILS % (AUTO) 55 % (42-75); PLATELET COUNT 227 10^3/uL (130-400); RED CELL DISTRIBUTION WIDTH 12.9 % (10.0-14.5); WHITE BLOOD COUNT 7.7 10^3/uL (4.3-11.0)
--- NOTE | 2016-09-24 23:57 | ED Psychosocial ---
General Chief Complaint: Psych/Social Disorder Stated Complaint: PANIC ATTACK Nursing Triage Note: PT HERE WITH C/O ANXIETY AND C/O PANIC ATTACK. PT WAS SEEN HERE LAST NIGHT FOR THE SAME THING. Source: patient Exam Limitations: no limitations History of Present Illness Time seen by provider: 23:44 Initial Comments Here with report of anxiety that is uncontrolled as well as significant depression. She denies suicidal or homicidal ideations. She does have history of PTSD from previous relationship and has underlying anxiety. Over the last few days she's had 3 visits to the ER now for panic attacks and worsening symptoms of anxiety and depression. She states that she's had some nausea and vomiting today. She had a headache yesterday and a few days ago. She is finishing treatment for urinary tract infection. She has appointment with a new primary care physician, Dr. Chad Vázquez of [facility] here in [place] that she would feel to go to tomorrow but she feels like this anxiety and depression is too great to be at home. She is requesting inpatient admission if possible. Timing/Duration: week, getting worse Severity: moderate, severe Associated Symptoms: anxiety, impaired concentration, insomnia Allergies and Home Medications Allergies Coded Allergies: Sulfa (Sulfonamide Antibiotics) (Unverified Adverse Reaction, Unknown, ) ciprofloxacin (Unverified Adverse Reaction, Unknown, 09/21/16) Home Medications Alprazolam 0.5 Mg Tablet #7 0.5 MG PO Q12H PRN PRN ANXIETY Prescribed by: FAROOQ CONTRERAS on 09/21/16 0250 Bupropion HCl 300 Mg Tab.er.24h 300 MG PO DAILY (Reported) Cephalexin 500 Mg Tablet #14 500 MG PO BID Prescribed by: FAROOQ CONTRERAS on 09/21/16 0304 Citalopram Hydrobromide 20 Mg Tablet 20 MG PO DAILY (Reported) Clonazepam 1 Mg Tablet 1 MG PO BID (Reported) Hydroxyzine Pamoate 25 Mg Capsule #9 25 MG PO TID PRN PRN ANXIETY Prescribed by: SWATI TUCKER on 09/23/167 Constitutional: see HPINo chills, No fever EENTM: no symptoms reported Respiratory: no symptoms reportedNo cough, No short of breath Cardiovascular: no symptoms reportedNo chest pain, No edema Gastrointestinal: No abdominal pain, No diarrhea, nausea vomiting Genitourinary: no symptoms reported Musculoskeletal: no symptoms reported Skin: no symptoms reported Psychiatric/Neurological: No Symptoms Reported All Other Systems Reviewed Negative Unless Noted: Yes Past Knlhabf-Lzpsxg-Zdxvqk Hx Patient Social History Type Used: Cigarettes Recent Foreign Travel: No Contact w/Someone Who Travel: No Recent Infectious Disease Expo: No Recent Hopitalizations: No Seasonal Allergies Seasonal Allergies: Yes Surgeries HX Surgeries: No Respiratory Hx Respiratory Disorders: No Cardiovascular Hx Cardiac Disorders: Yes (MITRAL VALVE PROLAPSE) Neurological Hx Neurological Disorders: Yes Neurological Disorders: Headaches /Migraines Psychosocial Hx Psychiatric Problems: Yes Behavioral Health Disorders: Anxiety, PTSD, Depression Reviewed Nursing Assessment Reviewed/Agree w Nursing PMH: Yes Family Medical History Significant Family History: No Pertinent Family Hx Physical Exam Vital Signs Vital Sign - Last 12Hours 09/24/16 22:57 Temp 98.8 Pulse 66 Resp 18 B/P 118/76 Pulse Ox 94 O2 Delivery Room Air Capillary Refill : Less Than 3 Seconds General Appearance: WD/WN no apparent distress HEENT: PERRL/EOMI pharynx normal Neck: full range of motion supple Respiratory: lungs clear normal breath sounds Cardiovascular: regular rate, rhythm no murmur Gastrointestinal: non tender soft Extremities: non-tender normal inspection Neurologic/Psychiatric: alert oriented x 3 Appearance/Memory: appropriate appearance appropriate insight neat Behavior/Eye Contact: cooperative good eye contact Thoughts/Hallucinations: normal thought pattern no apparent hallucination Skin: normal color warm/dry Progress/Results/Core Measures Results/Orders Lab Results Laboratory Tests Test 09/24/16 23:45 09/24/16 23:57 Range/Units Acetaminophen Level < 10 L 10-30 UG/ML Alanine Aminotransferase (ALT/SGPT) 10 0-55 U/L Albumin 4.1 3.2-4.5 G/DL Alkaline Phosphatase 63 40-136 U/L Anion Gap 10 5-14 MMOL/L Aspartate Amino Transf (AST/SGOT) 12 5-34 U/L BUN/Creatinine Ratio 9 Basophils # (Auto) 0.0 0.0-0.1 10^3/uL Basophils (%) (Auto) 0 0-10 % Blood Urea Nitrogen 9 7-18 MG/DL Calcium Level 8.7 8.5-10.1 MG/DL Carbon Dioxide Level 19 L 21-32 MMOL/L Chloride Level 111 H 98-107 MMOL/L Creatinine 0.97 0.60-1.30 MG/DL Eosinophils # (Auto) 0.5 H 0.0-0.3 10^3/uL Eosinophils (%) (Auto) 7 0-10 % Estimat Glomerular Filtration Rate > 60 Glucose Level 102 70-105 MG/DL Hematocrit 36 35-52 % Hemoglobin 12.5 11.5-16.0 G/DL Lymphocytes # (Auto) 2.1 1.0-4.0 X 10^3 Lymphocytes (%) (Auto) 27 12-44 % Mean Corpuscular Hemoglobin 31 25-34 PG Mean Corpuscular Hemoglobin Concent 35 32-36 G/DL Mean Corpuscular Volume 90 80-99 FL Mean Platelet Volume 11.0 H 7.4-10.4 FL Monocytes # (Auto) 0.9 0.0-1.0 X 10^3 Monocytes (%) (Auto) 11 0-12 % Neutrophils # (Auto) 4.2 1.8-7.8 X 10^3 Neutrophils (%) (Auto) 55 42-75 % Platelet Count 227 130-400 10^3/uL Potassium Level 3.7 3.6-5.0 MMOL/L Red Blood Count 4.00 L 4.35-5.85 10^6/uL Red Cell Distribution Width 12.9 10.0-14.5 % Salicylates Level < 5.0 L 5.0-20.0 MG/DL Serum Alcohol < 10 <10 MG/DL Sodium Level 140 135-145 MMOL/L Total Bilirubin 0.2 0.1-1.0 MG/DL Total Protein 6.7 6.4-8.2 G/DL White Blood Count 7.7 4.3-11.0 10^3/uL Ur Tricyclic Antidepressants Screen NEGATIVE NEGATIVE Urine Amphetamines Screen NEGATIVE NEGATIVE Urine Bacteria FEW H /HPF Urine Barbiturates Screen NEGATIVE NEGATIVE Urine Benzodiazepines Screen POSITIVE H NEGATIVE Urine Bilirubin 1+ H NEGATIVE Urine Cannabinoids Screen NEGATIVE NEGATIVE Urine Casts NONE /LPF Urine Clarity VERY CLOUDY H Urine Cocaine Screen NEGATIVE NEGATIVE Urine Color YELLOW Urine Crystals NONE /LPF Urine Culture Indicated NO Urine Glucose (UA) NEGATIVE NEGATIVE Urine Ketones NEGATIVE NEGATIVE Urine Leukocyte Esterase 3+ H NEGATIVE Urine Methadone Screen NEGATIVE NEGATIVE Urine Methamphetamines Screen NEGATIVE NEGATIVE Urine Mucus NEGATIVE /LPF Urine Nitrite NEGATIVE NEGATIVE Urine Opiates Screen NEGATIVE NEGATIVE Urine Oxycodone Screen NEGATIVE NEGATIVE Urine Phencyclidine Screen NEGATIVE NEGATIVE Urine Test NEGATIVE NEGATIVE Urine Propoxyphene Screen NEGATIVE NEGATIVE Urine Protein 1+ H NEGATIVE Urine RBC NONE /HPF Urine RBC (Auto) NEGATIVE NEGATIVE Urine Specific [place] 1.020 1.016-1.022 Urine Squamous Epithelial Cells >50 H /HPF Urine Urobilinogen NORMAL NORMAL MG/DL Urine WBC 0-2 /HPF Urine pH 5 5-9 My Orders Orders-FAROOQ CONTRERAS MD Ua Culture If Indicated (09/24/16:) Cbc With Automated Diff (09/24/16:) Comprehensive Metabolic Panel (09/24/16:) Alcohol (09/24/16) Drug Screen Stat (Urine) (09/24/16) Acetaminophen (09/24/16) Salicylate (09/24/16) Saline Lock/Iv-Start (09/24/16) Monitor-Rhythm Ecg Trace Only (09/24/16) Ekg Tracing (09/24/16) Olanzapine Orally Dissolve Tab (Zyprexa (09/25/16 00:00) Hcg,Qualitative Urine (09/25/16 01:27) Medications Given in ED Current Medications Medications Dose Ordered Sig/Cipriano Route Start Time Stop Time Status Last Admin Dose Admin Olanzapine 5 mg ONCE ONCE PO 09/25/16 00:00 09/25/16 00:01 DC 09/25/16 00:19 5 MG Vital Signs/I&O Vital Sign - Last 12Hours 09/24/16 22:57 Temp 98.8 Pulse 66 Resp 18 B/P 118/76 Pulse Ox 94 O2 Delivery Room Air Blood Pressure Mean: 90 Progress Note : Progress Note Seen and evaluated. Labs, EKG and UA ordered for medical clearance. We will pursue finding facility for inpatient treatment. Zyprexa 5 mg by mouth ordered. Monitor patient. 0050: Labs reviewed. No significant findings. Patient is currently in therapy for urinary tract infection and culture from first visit indicates that the organisms are susceptible to the Keflex that was prescribed. Her urine is better today. We will pursue inpatient treatment. 0300: Patient improved. Patient accepted at [facility] for inpatient psychiatric therapy. Dr. Camara accepting. Patient is appreciative and agrees with plan. 0350:2 [facility] via transport service. ECG Initial ECG Impression Date: Sep 24, 2016 Initial ECG Impression Time: 23:44 Initial ECG Rhythm: Normal Sinus Initial ECG Impression: Normal Comment Sinus rhythm with normal axis. No evidence of ST elevation [place]. Interpreted by me. Departure Impression Impression: Primary Impression: Anxiety Additional Impression: Depression Qualified Code: F33.1 - Major depressive disorder, recurrent, moderate Disposition: 02 XFER SHT-TRM HOSP Condition: Stable Transfer Transfer Time: 03:00 Transfer Facility: [facility], [place], Dr. Camara accepting. Method of Transfer: [facility] transport Departure-Patient Inst. Referrals: CHAD VÁZQUEZ MD (PCP/Family) Primary Care Physician FAROOQ CONTRERAS MD Sep 24, 2016 23:57
[2016-09-25] MEDS ORDERED: OLANZapine 5 MG ODT (ZyPREXA ZYDIS) PO ONE
[2016-09-25 00:06] LABS: KETONES,URINE NEGATIVE (NEGATIVE); LEUKOCYTE ESTERASE ,URINE 3+ (NEGATIVE); NITRITE,URINE NEGATIVE (NEGATIVE); PH,URINE 5 (5-9); PROTEIN,URINE 1+ (NEGATIVE); UROBILINOGEN,URINE NORMAL (NORMAL)
[2016-09-25 00:12] LABS: ALANINE AMINOTRANSFERASE 10 U/L (0-55); ALBUMIN 4.1 G/DL (3.2-4.5); ANION GAP 10 MMOL/L (5-14); ASPARTATE AMINO TRANSFERASE 12 U/L (5-34); BILIRUBIN,TOTAL 0.2 MG/DL (0.1-1.0); BLOOD UREA NITROGEN 9 MG/DL (7-18); BUN/CREATININE RATIO 9; CALCIUM 8.7 MG/DL (8.5-10.1); CARBON DIOXIDE 19 MMOL/L (21-32); CHLORIDE 111 MMOL/L (98-107); CREATININE SERUM 0.97 MG/DL (0.60-1.30); GFR ESTIMATED > 60; GLUCOSE 102 MG/DL (70-105); POTASSIUM 3.7 MMOL/L (3.6-5.0); SALICYLATE < 5.0 MG/DL (5.0-20.0); SODIUM 140 MMOL/L (135-145); TOTAL PROTEIN 6.7 G/DL (6.4-8.2)
[2016-09-25 00:15] LABS: ACETAMINOPHEN < 10 UG/ML (10-30); ALCOHOL < 10 MG/DL (<10)
[2016-09-25 00:18] LABS: BILIRUBIN,URINE 1+ (NEGATIVE); SQUAMOUS EPITHELIAL CELL,UR >50 /HPF; WBC,URINE 0-2 /HPF
[2016-09-25 03:46] VITALS: BP 117/47
== END 2016-09-25 03:50 | disposition short-term general hospital (02) ==
LOC: ER 21:35 → EDUNIT# 21:35 → ER 09-25 03:50
DX: F41.9 Anxiety disorder, unspecified (principal); F33.9 Major depressive disorder, recurrent, unspecified; Z79.899 Other long term (current) drug therapy
CPT/HCPCS: 36415; 80053; 80306; 80320; 80329; 81000; 84703; 85025; 93005

== ENCOUNTER 2016-10-16 18:36 | Emergency (ER) | payer BC ==
[~2016-10-16] VITALS: Ht 182.9 cm; Wt 61.2 kg
[2016-10-16] MEDS ORDERED: NS IV 1000 ML 1,000 ML IV ONE (19:06)
[2016-10-16] MEDS ORDERED: PROMETHAZINE INJ 25 MG/ML (PHENERGAN) AMP IVP ONE (19:15)
[2016-10-16 19:36] LABS: BASOPHILS # (AUTO) 0.1 10^3/uL (0.0-0.1); BASOPHILS % (AUTO) 1 % (0-10); EOSINOPHILS % (AUTO) 11 % (0-10); LYMPHOCYTES # (AUTO) 1.9 X 10^3 (1.0-4.0); LYMPHOCYTES % (AUTO) 21 % (12-44); MEAN CORPUSCULAR HEMOGLOBIN 31 PG (25-34); MEAN CORPUSCULAR HGB CONC 34 G/DL (32-36); MEAN CORPUSCULAR VOLUME 91 FL (80-99); MEAN PLATELET VOLUME 9.7 FL (7.4-10.4); MONOCYTES # (AUTO) 1.2 X 10^3 (0.0-1.0); MONOCYTES % (AUTO) 13 % (0-12); NEUTROPHILS # (AUTO) 4.9 X 10^3 (1.8-7.8); NEUTROPHILS % (AUTO) 54 % (42-75); PLATELET COUNT 302 10^3/uL (130-400); RED BLOOD COUNT 3.68 10^6/uL (4.35-5.85); RED CELL DISTRIBUTION WIDTH 13.7 % (10.0-14.5)
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
[2016-10-16 19:55] LABS: ALANINE AMINOTRANSFERASE 23 U/L (0-55); ALBUMIN 3.9 G/DL (3.2-4.5); ANION GAP 10 MMOL/L (5-14); ASPARTATE AMINO TRANSFERASE 14 U/L (5-34); BILIRUBIN,TOTAL 0.2 MG/DL (0.1-1.0); BLOOD UREA NITROGEN 10 MG/DL (7-18); BUN/CREATININE RATIO 14; CALCIUM 8.6 MG/DL (8.5-10.1); CARBON DIOXIDE 21 MMOL/L (21-32); CHLORIDE 107 MMOL/L (98-107); CREATININE SERUM 0.74 MG/DL (0.60-1.30); GFR ESTIMATED > 60; GLUCOSE 139 MG/DL (70-105); POTASSIUM 3.9 MMOL/L (3.6-5.0); SODIUM 138 MMOL/L (135-145); TOTAL PROTEIN 6.8 G/DL (6.4-8.2)
[2016-10-16] MEDS ORDERED: DIAZEPAM 5 MG (VALIUM) TABLET PO ONE (20:00)
[2016-10-16 20:53] LABS: BILIRUBIN,URINE NEGATIVE (NEGATIVE); KETONES,URINE NEGATIVE (NEGATIVE); LEUKOCYTE ESTERASE ,URINE NEGATIVE (NEGATIVE); NITRITE,URINE NEGATIVE (NEGATIVE); PH,URINE 6.5 (5-9); PROTEIN,URINE NEGATIVE (NEGATIVE); UROBILINOGEN,URINE NORMAL (NORMAL)
[2016-10-16 21:02] LABS: WBC,URINE RARE /HPF
[2016-10-16 21:03] LABS: SQUAMOUS EPITHELIAL CELL,UR 0-2 /HPF
[2016-10-16 21:25] VITALS: BP 133/86
== END 2016-10-16 21:25 | disposition home or self-care (01) ==
LOC: EDUNIT# 18:36 → ER 18:38
DX: F41.9 Anxiety disorder, unspecified (principal); R11.2 Nausea with vomiting, unspecified; F43.10 Post-traumatic stress disorder, unspecified; F17.210 Nicotine dependence, cigarettes, uncomplicated; Z79.899 Other long term (current) drug therapy
CPT/HCPCS: 36415; 80053; 81000; 83735; 84703; 85025; 96361; 96374

== ENCOUNTER 2016-10-17 13:47 | Emergency (ER) | payer BC ==
[~2016-10-17] VITALS: Ht 182.9 cm; Wt 70.8 kg
--- NOTE | 2016-10-17 14:04 | ED Psychosocial ---
General Chief Complaint: Psych/Social Disorder Stated Complaint: ANXIETY ATTACK Source: patient Exam Limitations: no limitations History of Present Illness Time seen by provider: 14:03 Initial Comments Patient presents to the emergency room for the fifth time in 1 month with complaints of anxiety. She states that she was formerly on benzodiazepines for the anxiety that they fell out of her And she lost them all. She would like me to refill them as her primary care provider refuses to do so. She was here last night asking for the same thing. She was here 2 visits ago and was transferred to the mental health facility inpatient at [place] but she was there for 24 hours before leaving AGAINST MEDICAL ADVICE. She voices no thoughts of self-harm or suicidal ideations. Timing/Duration: just prior to arrival Severity: moderate Associated Symptoms: anxiety Allergies and Home Medications Allergies Coded Allergies: Sulfa (Sulfonamide Antibiotics) (Unverified Adverse Reaction, Unknown, ) ciprofloxacin (Unverified Adverse Reaction, Unknown, 09/21/16) Home Medications Alprazolam 0.5 Mg Tablet, 0.5 MG PO Q12H PRN for ANXIETY, #7 Ref 0 Prescribed by: FAROOQ CONTRERAS on 09/21/16 0250 Bupropion HCl 300 Mg Tab.er.24h, 300 MG PO DAILY, (Reported) Cephalexin 500 Mg Tablet, 500 MG PO BID, #14 Prescribed by: FAROOQ CONTRERAS on 09/21/16 0304 Citalopram Hydrobromide 20 Mg Tablet, 20 MG PO DAILY, (Reported) Clonazepam 1 Mg Tablet, 1 MG PO BID, (Reported) Hydroxyzine Pamoate 25 Mg Capsule, 25 MG PO TID PRN for ANXIETY, #9 Prescribed by: SWATI TUCKER on 09/23/167 Constitutional: see HPI EENTM: see HPI Respiratory: no symptoms reported Cardiovascular: no symptoms reported Genitourinary: no symptoms reported Musculoskeletal: see HPI Skin: no symptoms reported Psychiatric/Neurological: See HPI, Anxiety Past Mlrnmkt-Egpggy-Zwjqmm Hx Patient Social History Type Used: Cigarettes 2nd Hand Smoke Exposure: No Recent Foreign Travel: No Contact w/Someone Who Travel: No Recent Hopitalizations: No Seasonal Allergies Seasonal Allergies: Yes Surgeries HX Surgeries: No Respiratory Hx Respiratory Disorders: No Cardiovascular Hx Cardiac Disorders: Yes (MITRAL VALVE PROLAPSE) Cardiac Disorders: Valvular Heart Disease Neurological Hx Neurological Disorders: Yes Neurological Disorders: Headaches /Migraines Genitourinary Hx Genitourinary Disorders: No Gastrointestinal Hx Gastrointestinal Disorders: No Musculoskeletal Hx Musculoskeletal Disorders: Yes Musculoskeletal Disorders: Fractures Endocrine Hx Endocrine Disorders: No HEENT HX ENT Disorders: No Cancer Hx Cancer: No Psychosocial Hx Psychiatric Problems: Yes Behavioral Health Disorders: Anxiety, PTSD, Depression Family Medical History Significant Family History: Cancer, Psychiatric Problems, Other Conditions/Hx Physical Exam Vital Signs Vital Sign - Last 12Hours 10/17/16 13:55 Temp 100.6 Pulse 90 Resp 18 B/P (MAP) 155/99 Pulse Ox 96 Capillary Refill : General Appearance: WD/WN, no apparent distress HEENT: PERRL/EOMI, normal ENT inspection Neck: non-tender, full range of motion Respiratory: no respiratory distress, no accessory muscle use Cardiovascular: regular rate, rhythm, no murmur Gastrointestinal: non tender, soft Neurologic/Psychiatric: alert, normal mood/affect, oriented x 3 Appearance/Memory: appropriate appearance, appropriate insight Behavior/Eye Contact: cooperative, good eye contact Thoughts/Hallucinations: normal thought pattern, no apparent hallucination Skin: normal color, warm/dry Progress/Results/Core Measures Results/Orders My Orders Orders - SWATI TUCKER APRN Diazepam Tablet (Valium Tablet) (10/17/16 14:15) Vital Signs/I&O Vital Sign - Last 12Hours 10/17/16 13:55 Temp 100.6 Pulse 90 Resp 18 B/P (MAP) 155/99 Pulse Ox 96 Departure Communication Progress Notes 1427-I have moved the patient's appointment up (mental health happened to have an opening today) to 430 p.m. today at [address] Impression Impression: Primary Impression: Anxiety Disposition: 01 HOME, SELF-CARE Condition: Stable Departure-Patient Inst. Decision time for Depature: 14:05 Referrals: JUDY VÁZQUEZ MD (PCP/Family) Primary Care Physician Patient Instructions: Panic Disorder (DC) Add. Discharge Instructions: 1. You must follow-up with your mental health provider to refill any medications. They will not be refilled in the emergency room 2. Call [facility] at [phone] for any mental health emergencies 3. Your scheduled to see mental health today at 430 [address] at [address] Do not miss this appointment 4. 5. All discharge instructions reviewed with patient and/or family. Voiced understanding. SWATI TUCKER APRN Oct 17, 2016 14:04
[2016-10-17] MEDS ORDERED: DIAZEPAM 5 MG (VALIUM) TABLET PO ONE ×2 (14:15→14:45)
[2016-10-17 14:34] VITALS: BP 155/99
== END 2016-10-17 14:34 | disposition home or self-care (01) ==
LOC: EDUNIT# 13:47 → ER 13:49
DX: F41.9 Anxiety disorder, unspecified (principal)
CPT/HCPCS: 99283

== ENCOUNTER 2016-11-18 11:53 | Emergency (ER) | payer SELFPAY ==
[~2016-11-18] VITALS: Ht 182.9 cm; Wt 72.6 kg
[2016-11-18] MEDS ORDERED: GABA-488 PO (12:05)
[2016-11-18 12:13] LABS: BILIRUBIN,URINE NEGATIVE (NEGATIVE); KETONES,URINE NEGATIVE (NEGATIVE); LEUKOCYTE ESTERASE ,URINE 2+ (NEGATIVE); NITRITE,URINE NEGATIVE (NEGATIVE); PH,URINE 5 (5-9); PROTEIN,URINE NEGATIVE (NEGATIVE); UROBILINOGEN,URINE NORMAL (NORMAL)
--- NOTE | 2016-11-18 12:14 | ED GU-Female ---
General Chief Complaint: -Female Stated Complaint: PAINFUL URINATION/BACK PAIN/VOMITING Nursing Triage Note: to ER with complaints of burning with urination and left lower back pain x 3 days. Patient reports that she vomited last night. Nursing Sepsis Screen: No Definite Risk Source: patient Exam Limitations: no limitations History of Present Illness Time seen by provider: 12:13 Initial Comments To ER with low back pain, nausea vomiting, suprapubic pain for 3 days. She also has yellowish vaginal discharge. Timing/Duration: constant, getting worse Severity/Quality: moderate, cramping Location: suprapubic Radiation: back Activities at Onset: none, emotional stress Associated Symptoms: dysuria, lower back pain, nausea/vomiting Allergies and Home Medications Allergies Coded Allergies: Sulfa (Sulfonamide Antibiotics) (Unverified Adverse Reaction, Unknown, ) ciprofloxacin (Unverified Adverse Reaction, Unknown, 11/18/16) Home Medications Citalopram Hydrobromide 20 Mg Tablet, 20 MG PO DAILY, (Reported) Gabapentin 300 Mg Capsule, 300 MG PO TID, (Reported) Hydroxyzine Pamoate 25 Mg Capsule, 25 MG PO TID PRN for ANXIETY, #9 Prescribed by: SWATI TUCKER on 09/23/162226 Constitutional: see HPI, No chills, No fever EENTM: see HPI Respiratory: no symptoms reported Cardiovascular: no symptoms reported Genitourinary: no symptoms reported Musculoskeletal: see HPI, back pain Skin: no symptoms reported Psychiatric/Neurological: No Symptoms Reported Endocrine: No Symptoms Reported Past Chcokez-Vslede-Avncne Hx Patient Social History Alcohol Use: Denies Use Recreational Drug Use: No Smoking Status: Current Everyday Smoker Type Used: Cigarettes 2nd Hand Smoke Exposure: Yes Recent Foreign Travel: No Contact w/Someone Who Travel: No Recent Infectious Disease Expo: No Recent Hopitalizations: No Immunizations Up To Date Tetanus Booster (TDap): Less than 5yrs Seasonal Allergies Seasonal Allergies: Yes Surgeries HX Surgeries: No Respiratory Hx Respiratory Disorders: No Cardiovascular Hx Cardiac Disorders: Yes (MITRAL VALVE PROLAPSE) Cardiac Disorders: Valvular Heart Disease Neurological Hx Neurological Disorders: Yes Neurological Disorders: Headaches /Migraines Genitourinary Hx Genitourinary Disorders: No Genitourinary Disorders: Kidney Infection Gastrointestinal Hx Gastrointestinal Disorders: No Musculoskeletal Hx Musculoskeletal Disorders: Yes Musculoskeletal Disorders: Fractures Endocrine Hx Endocrine Disorders: No HEENT HX ENT Disorders: No Cancer Hx Cancer: No Psychosocial Hx Psychiatric Problems: Yes Behavioral Health Disorders: Anxiety, PTSD, Depression Family Medical History Significant Family History: Cancer, Psychiatric Problems, Other Conditions/Hx Physical Exam Vital Signs Vital Sign - Last 12Hours 11/18/16 12:00 Temp 98.5 Pulse 75 Resp 16 B/P (MAP) 163/91 Pulse Ox 99 O2 Delivery Room Air Capillary Refill : Less Than 3 Seconds General Appearance: WD/WN, no apparent distress HEENT: PERRL/EOMI, normal ENT inspection Neck: non-tender, full range of motion Respiratory: no respiratory distress, no accessory muscle use Gastrointestinal: normal bowel sounds, non tender Pelvic: normal external exam, No discharge, other (pelvic exam done with FRANCI Acosta at the bedside. Unremarkable exam with a normal-appearing cervix without discharge or cervical motion tenderness) Extremities: normal range of motion, non-tender Neurologic/Psychiatric: alert, normal mood/affect, oriented x 3 Skin: normal color, warm/dry Progress/Results/Core Measures Results/Orders Lab Results Laboratory Tests Test 11/18/16 12:06 Range/Units Urine Color YELLOW Urine Clarity VERY CLOUDY H Urine pH 5 5-9 Urine Specific [place] 1.015 L 1.016-1.022 Urine Protein NEGATIVE NEGATIVE Urine Glucose (UA) NEGATIVE NEGATIVE Urine Ketones NEGATIVE NEGATIVE Urine Nitrite NEGATIVE NEGATIVE Urine Bilirubin NEGATIVE NEGATIVE Urine Urobilinogen NORMAL NORMAL MG/DL Urine Leukocyte Esterase 2+ H NEGATIVE Urine RBC (Auto) 1+ H NEGATIVE Urine RBC 0-2 /HPF Urine WBC 2-5 /HPF Urine Squamous Epithelial Cells 10-25 H /HPF Urine Crystals NONE /LPF Urine Bacteria LARGE H /HPF Urine Casts NONE /LPF Urine Mucus NEGATIVE /LPF Urine Culture Indicated YES My Orders Orders - SWATI TUCKER APRN Ua Culture If Indicated (11/18/16 11:56) Urine Bedside (11/18/16 11:56) Urine Culture (11/18/16 12:06) Wet Prep (11/18/16 12:32) Neisseria Gonorrhea Dna (11/18/16 12:32) Chlamydia Dna (11/18/16 12:32) Genital Culture (11/18/16 12:32) Ketorolac Injection (Toradol Injection) (11/18/16 12:45) Ondansetron Oral Dissolve Tab (Zofran (11/18/16 12:45) Medications Given in ED Current Medications Medications Dose Ordered Sig/Cipriano Route Start Time Stop Time Status Last Admin Dose Admin Ketorolac Tromethamine 60 mg ONCE ONCE IM 11/18/16 12:45 11/18/16 12:46 DC 11/18/16 12:38 60 MG Ondansetron HCl 4 mg ONCE ONCE PO 11/18/16 12:45 11/18/16 12:46 DC 11/18/16 12:38 4 MG Vital Signs/I&O Vital Sign - Last 12Hours 11/18/16 11/18/16 12:00 12:38 Temp 98.5 98.5 Pulse 75 Resp 16 B/P (MAP) 163/91 Pulse Ox 99 O2 Delivery Room Air Blood Pressure Mean: 115 Departure Impression Impression: Primary Impression: Urinary tract infection Disposition: 01 HOME, SELF-CARE Condition: Stable Departure-Patient Inst. Decision time for Depature: 13:12 Referrals: JUDY VÁZQUEZ MD (PCP/Family) Primary Care Physician Patient Instructions: Urinary Tract Infection, Adult (DC) Add. Discharge Instructions: 1. Antibiotics as directed 2. Drink clear fluids 3. Return to ER for any concerns or worsening symptoms All discharge instructions reviewed with patient and/or family. Voiced understanding. Scripts Cefuroxime Axetil (Cefuroxime) 250 Mg Tablet 250 MG PO BID, #10 TAB Prov: SWATI TUCKER APRN 11/18/16 SWATI TUCKER APRN November 18, 2016 12:14
[2016-11-18] MEDS ORDERED: ONDANSETRON 4 MG (ZOFRAN) ORAL DISSOLVE TAB PO ONE (12:45)
[2016-11-18] MEDS ORDERED: KETOROLAC 60 MG/2 ML VIAL IM ONE (12:45)
[2016-11-18] MEDS ORDERED: CEFU250T80 PO (13:13)
[2016-11-18 13:37] VITALS: BP 155/77
== END 2016-11-18 13:37 | disposition home or self-care (01) ==
LOC: EDUNIT# 11:53 → ER 11:55
DX: N39.0 Urinary tract infection, site not specified (principal); R11.2 Nausea with vomiting, unspecified; F17.210 Nicotine dependence, cigarettes, uncomplicated
CPT/HCPCS: 36415; 81000; 84703; 87070; 87088; 87186; 87210; 87491; 87591; 96372; 99284

== ENCOUNTER → 2017-06-26 | Outpatient (CLI) | payer MEDICAID ==
[~2017-06-26] MED LIST changes: +CEFU250T80 PO; +GABA-488 PO
== END ==
LOC: WSo 15:34
PROVIDERS: ATTEND Obstetrics & Gynecology
DX: O36.0990 Maternal care for other rhesus isoimmunization, unspecified trimester, not applicable or unspecified (principal); Z23 Encounter for immunization
CPT/HCPCS: 96372

== ENCOUNTER 2017-07-21 00:01 | Outpatient (CLI) | payer MEDICAID ==
[~2017-07-21] VITALS: Ht 182.9 cm; Wt 107.0 kg
[2017-07-21 00:16] VITALS: BP 129/68
[2017-07-21 00:22] LABS: BILIRUBIN,URINE NEGATIVE (NEGATIVE); CLARITY,URINE CLEAR; COLOR,URINE YELLOW; GLUCOSE, URINE (UA) NEGATIVE (NEGATIVE); KETONES,URINE NEGATIVE (NEGATIVE); LEUKOCYTE ESTERASE ,URINE 3+ (NEGATIVE); NITRITE,URINE NEGATIVE (NEGATIVE); PH,URINE 6 (5-9); PROTEIN,URINE 1+ (NEGATIVE); UROBILINOGEN,URINE NORMAL (NORMAL)
[2017-07-21] MEDS ORDERED: D5 LR IV SOLUTION 1,000 ML IV ONE (00:26)
[2017-07-21] MEDS ORDERED: ONDANSETRON 4 MG/2 ML (SDV) Z0FRAN ONE (00:26)
[2017-07-21] MEDS ORDERED: ONDANSETRON 4 MG/2 ML (SDV) Z0FRAN IVP ONE (00:30)
[2017-07-21] MEDS ORDERED: D5 LR IV SOLUTION 1,000 ML IV SCH (00:30)
[2017-07-21] MEDS ORDERED: MIRT30TA PO (00:31)
[2017-07-21] MEDS ORDERED: ALPR0.5T PO (00:32)
[2017-07-21] MEDS ORDERED: LORA-407 PO (00:32)
[2017-07-21] MEDS ORDERED: LURA40TA3 PO (00:32)
[2017-07-21 00:36] LABS: BACTERIA,URINE MODERATE /HPF
[2017-07-21 00:44] LABS: BASOPHILS % (AUTO) 0 % (0-10); EOSINOPHILS # (AUTO) 0.4 10^3/uL (0.0-0.3); EOSINOPHILS % (AUTO) 3 % (0-10); HEMATOCRIT 29 % (35-52); HEMOGLOBIN 9.9 G/DL (11.5-16.0); LYMPHOCYTES # (AUTO) 2.3 X 10^3 (1.0-4.0); LYMPHOCYTES % (AUTO) 21 % (12-44); MEAN CORPUSCULAR HEMOGLOBIN 30 PG (25-34); MEAN CORPUSCULAR HGB CONC 34 G/DL (32-36); MEAN CORPUSCULAR VOLUME 89 FL (80-99); MEAN PLATELET VOLUME 10.3 FL (7.4-10.4); MONOCYTES # (AUTO) 1.2 X 10^3 (0.0-1.0); MONOCYTES % (AUTO) 11 % (0-12); NEUTROPHILS % (AUTO) 64 % (42-75); PLATELET COUNT 286 10^3/uL (130-400); RED BLOOD COUNT 3.31 10^6/uL (4.35-5.85); RED CELL DISTRIBUTION WIDTH 13.9 % (10.0-14.5); WHITE BLOOD COUNT 10.8 10^3/uL (4.3-11.0)
[2017-07-21 01:04] LABS: ALANINE AMINOTRANSFERASE 12 U/L (0-55); ALBUMIN 3.2 GM/DL (3.2-4.5); ALKALINE PHOSPHATASE 91 U/L (40-136); BILIRUBIN,TOTAL 0.2 MG/DL (0.1-1.0); BUN/CREATININE RATIO 17; CALCIUM 8.8 MG/DL (8.5-10.1); CARBON DIOXIDE 21 MMOL/L (21-32); CHLORIDE 107 MMOL/L (98-107); CREATININE SERUM 0.53 MG/DL (0.60-1.30); GFR ESTIMATED > 60; GLUCOSE 109 MG/DL (70-105); POTASSIUM 3.6 MMOL/L (3.6-5.0); SODIUM 137 MMOL/L (135-145); TOTAL PROTEIN 5.8 GM/DL (6.4-8.2)
[2017-07-21] MEDS ORDERED: CITRIC ACID/SOB CIT (BICITRA) 30 ML UDC ONE (01:15)
[2017-07-21] MEDS ORDERED: CITRIC ACID/SOB CIT (BICITRA) 30 ML UDC PO ONE (01:30)
[2017-07-21 01:49] VITALS: BP 119/59
[2017-07-21] MEDS ORDERED: CEPH-507 PO (17:27)
[2017-07-21] MEDS ORDERED: ONDA4TAB8 SL (17:27)
--- NOTE | 2017-07-22 15:38 | Physician Query-Final Dx ---
JADIEN MARTÍNEZ 07/22/17 1538: Clinic Account Progress/Dx Physician Query: Please give diagnosis Date of Service Jul 21, 2017 at 00:01 STEPHANIE CLAYTON MD 07/24/17 0813: Clinic Account Progress/Dx DIAGNOSIS: Diagnosis false labor JAIDEN MARTÍNEZ Jul 22, 2017 15:38 STEPHANIE CLAYTON MD Jul 24, 2017 08:13
== END 2017-07-21 02:20 | disposition home or self-care (01) ==
LOC: LDRP 00:01 → WSo 00:01
PROVIDERS: ATTEND Obstetrics & Gynecology
DX: O47.03 False labor before 37 completed weeks of gestation, third trimester (principal); Z3A.34 34 weeks gestation of pregnancy
CPT/HCPCS: 36415; 80053; 81000; 82570; 84156; 85025; 87077; 87088; 87186; 96361; 96374; 99214

== ENCOUNTER 2017-07-21 13:21 | Emergency (ER) | payer MEDICAID ==
[~2017-07-21] VITALS: Ht 182.9 cm; Wt 81.6 kg
[~2017-07-21 13:21] MED LIST changes: +LORA-407 PO; +LURA40TA3 PO; +MIRT30TA PO
[2017-07-21 13:48] LABS: BILIRUBIN,URINE NEGATIVE (NEGATIVE); CLARITY,URINE CLEAR; COLOR,URINE YELLOW; GLUCOSE, URINE (UA) NEGATIVE (NEGATIVE); KETONES,URINE NEGATIVE (NEGATIVE); LEUKOCYTE ESTERASE ,URINE 1+ (NEGATIVE); NITRITE,URINE NEGATIVE (NEGATIVE); PH,URINE 7 (5-9); PROTEIN,URINE NEGATIVE (NEGATIVE); UROBILINOGEN,URINE NORMAL (NORMAL)
[2017-07-21 13:54] LABS: BACTERIA,URINE MODERATE /HPF
[2017-07-21] MEDS ORDERED: NS IV 1000 ML 1,000 ML IV ONE (14:47)
[2017-07-21 15:05] LABS: BASOPHILS % (AUTO) 0 % (0-10); EOSINOPHILS # (AUTO) 0.3 10^3/uL (0.0-0.3); EOSINOPHILS % (AUTO) 3 % (0-10); HEMATOCRIT 28 % (35-52); HEMOGLOBIN 9.6 G/DL (11.5-16.0); LYMPHOCYTES # (AUTO) 2.4 X 10^3 (1.0-4.0); LYMPHOCYTES % (AUTO) 21 % (12-44); MEAN CORPUSCULAR HEMOGLOBIN 31 PG (25-34); MEAN CORPUSCULAR HGB CONC 35 G/DL (32-36); MEAN CORPUSCULAR VOLUME 89 FL (80-99); MEAN PLATELET VOLUME 10.2 FL (7.4-10.4); MONOCYTES % (AUTO) 9 % (0-12); NEUTROPHILS # (AUTO) 7.6 X 10^3 (1.8-7.8); NEUTROPHILS % (AUTO) 68 % (42-75); PLATELET COUNT 281 10^3/uL (130-400); RED BLOOD COUNT 3.13 10^6/uL (4.35-5.85); WHITE BLOOD COUNT 11.3 10^3/uL (4.3-11.0)
[2017-07-21] MEDS ORDERED: cefTRIAXone INJECTION 1,000 MG in NS (IVPB) 50 ML IV ONE (15:15)
[2017-07-21 15:29] LABS: ALANINE AMINOTRANSFERASE 18 U/L (0-55); ALBUMIN 3.2 GM/DL (3.2-4.5); ALKALINE PHOSPHATASE 90 U/L (40-136); BILIRUBIN,TOTAL 0.2 MG/DL (0.1-1.0); BUN/CREATININE RATIO 11; CALCIUM 8.5 MG/DL (8.5-10.1); CARBON DIOXIDE 19 MMOL/L (21-32); CHLORIDE 108 MMOL/L (98-107); CREATININE SERUM 0.54 MG/DL (0.60-1.30); GFR ESTIMATED > 60; GLUCOSE 91 MG/DL (70-105); MAGNESIUM 1.6 MG/DL (1.8-2.4); POTASSIUM 3.9 MMOL/L (3.6-5.0); SODIUM 137 MMOL/L (135-145); TOTAL PROTEIN 5.5 GM/DL (6.4-8.2); URIC ACID 3.5 MG/DL (2.6-7.2)
[2017-07-21] MEDS ORDERED: LORazepam INJ 2 MG/ML (ATIVAN) VIAL IVP ONE (16:00)
[2017-07-21] MEDS ORDERED: MAGNESIUM 1 GM/100 ML IVPB 100 ML IV ONE (16:00)
[2017-07-21] MEDS ORDERED: ONDANSETRON 4 MG/2 ML (SDV) Z0FRAN IVP ONE (16:00)
--- NOTE | 2017-07-21 17:26 | ED Neurological Problem ---
General Chief Complaint: Neurological Problems Stated Complaint: 34 WKS PREG/FALL/SEIZURE LIKE ACTIVITY Nursing Triage Note: PT HERE WITH C/O SEIZURE LIKE ACTIVITY. PTS REPORTS THAT HE HEARD HER FALL AND WENT INTO THE ROOM AND FOUND HER ON THE FLOOR SHAKING. PT DENIES INJURY. PT IS 34 WEEKS . Nursing Sepsis Screen: No Definite Risk Source: patient, old records Exam Limitations: no limitations History of Present Illness Time seen by provider: 13:30 Initial Comments This 34 woman at about 34 weeks gestational age presents to the emergency room with complaints of seizure-like activity. Her fianc is with her and states he heard a commotion in the other room at home and found her lying on the floor convulsing. She can convulse for less than 5 minutes and was unresponsive during that time. Patient also had another episode lasting about one minute in the emergency room witnessed by the fianc only. Patient denies any prior history of seizures or neurologic problems. She has had some mild headache and mild blurry vision. She has had some mild cough recently as well. She denies abdominal pain. She denies any injury associated with her collapse. The headache was present prior to the episode and is unchanged. She has had some increased swelling of her lower extremities recently. She is alert and oriented and in no distress at this time. She reports strong movements throughout the day. Dr. Flower is her backend tester. She has had some nausea and vomiting over the last couple of days and has been unable to take her medications. She denies any drug or alcohol use. Allergies and Home Medications Allergies Coded Allergies: Sulfa (Sulfonamide Antibiotics) (Unverified Adverse Reaction, Unknown, ) ciprofloxacin (Unverified Adverse Reaction, Unknown, 11/18/16) Home Medications Alprazolam 0.5 Mg Tablet, 0.5 MG PO PRN, (Reported) Cephalexin 500 Mg Capsule, 500 MG PO QID, #28 Prescribed by: IZZY PERKINS on 07/21/17 1727 Lorazepam 2 Mg Tablet, 2 MG PO TID, (Reported) Lurasidone HCl 40 Mg Tablet, 40 MG PO DAILY, (Reported) Mirtazapine 30 Mg Tablet, 30 MG PO DAILY, (Reported) Ondansetron 4 Mg Tab.rapdis, 4 MG SL Q4H PRN for NAUSEA/VOMITING-1ST LINE, #20 Prescribed by: IZZY PERKINS on 07/21/17 1727 Constitutional: no symptoms reported Eyes: No Symptoms Reported Ears, Nose, Mouth, Throat: no symptoms reported Respiratory: see HPI Cardiovascular: no symptoms reported Gastrointestinal: no symptoms reported Genitourinary: see HPI : Yes Expected Date of Delivery: Aug 25, 2017 Musculoskeletal: no symptoms reported Skin: no symptoms reported Psychiatric/Neurological: See HPI Endocrine: No Symptoms Reported Hematologic/Lymphatic: No Symptoms Reported Past Hgdlhlr-Spzlsy-Icksfs Hx Patient Social History Type Used: Cigarettes 2nd Hand Smoke Exposure: Yes Recent Foreign Travel: No Contact w/Someone Who Travel: No Recent Infectious Disease Expo: No Recent Hopitalizations: No Immunizations Up To Date Tetanus Booster (TDap): Less than 5yrs Seasonal Allergies Seasonal Allergies: Yes Surgeries History of Surgeries: No Respiratory History of Respiratory Disorde: No Cardiovascular History of Cardiac Disorders: Yes (MITRAL VALVE PROLAPSE) Cardiac Disorders: Valvular Heart Disease Neurological History of Neurological Disord: Yes Neurological Disorders: Headaches /Migraines Reproductive System : Yes Expected Date of Delivery: Aug 25, 2017 Last Menstrual Period: November 21, 2016 Genitourinary History of Genitourinary Disor: Yes Genitourinary Disorders: Kidney Infection Gastrointestinal History of Gastrointestinal Di: No Musculoskeletal History of Musculoskeletal Dis: Yes Musculoskeletal Disorders: Fractures Endocrine History of Endocrine Disorders: No HEENT History of HEENT Disorders: No Cancer History of Cancer: No Psychosocial History of Psychiatric Problem: Yes Behavioral Health Disorders: Anxiety, PTSD, Depression Integumentary History of Skin or Integumenta: No Family Medical History Significant Family History: Cancer, Psychiatric Problems, Other Conditions/Hx Physical Exam Vital Signs Vital Sign - Last 12Hours 07/21/17 13:29 Temp 97.8 Pulse 87 Resp 18 B/P (MAP) 107/65 (79) Pulse Ox 99 O2 Delivery Room Air Capillary Refill : Less Than 3 Seconds General Appearance: WD/WN, no apparent distress HEENT: PERRL/EOMI, normal ENT inspection, pharynx normal Neck: normal inspection Respiratory: lungs clear, normal breath sounds, no respiratory distress, no accessory muscle use Cardiovascular: regular rate, rhythm, no edema, no murmur Gastrointestinal: normal bowel sounds, non tender, soft, other (Appropriately gravid for gestational age) Extremities: non-tender, other (Mild lower extremity edema equal bilaterally) Neurologic/Psychiatric: roll picker II-XII nml as tested, no motor/sensory deficits, alert, normal mood/affect, oriented x 3 Crainal Nerves: normal hearing, normal speech, PERRL Coordination/Gait: normal gait Motor/Sensory: no motor deficit, no sensory deficit Skin: normal color, warm/dry Progress/Results/Core Measures Results/Orders Lab Results Laboratory Tests Test 07/21/17 13:40 07/21/17 14:50 Range/Units Urine Color YELLOW Urine Clarity CLEAR Urine pH 7 5-9 Urine Specific [place] 1.005 L 1.016-1.022 Urine Protein NEGATIVE NEGATIVE Urine Glucose (UA) NEGATIVE NEGATIVE Urine Ketones NEGATIVE NEGATIVE Urine Nitrite NEGATIVE NEGATIVE Urine Bilirubin NEGATIVE NEGATIVE Urine Urobilinogen NORMAL NORMAL MG/DL Urine Leukocyte Esterase 1+ H NEGATIVE Urine RBC (Auto) NEGATIVE NEGATIVE Urine RBC NONE /HPF Urine WBC 5-10 H /HPF Urine Crystals NONE /LPF Urine Bacteria MODERATE H /HPF Urine Casts NONE /LPF Urine Mucus NEGATIVE /LPF Urine Culture Indicated YES White Blood Count 11.3 H 4.3-11.0 10^3/uL Red Blood Count 3.13 L 4.35-5.85 10^6/uL Hemoglobin 9.6 L 11.5-16.0 G/DL Hematocrit 28 L 35-52 % Mean Corpuscular Volume 89 80-99 FL Mean Corpuscular Hemoglobin 31 25-34 PG Mean Corpuscular Hemoglobin Concent 35 32-36 G/DL Red Cell Distribution Width 14.0 10.0-14.5 % Platelet Count 281 130-400 10^3/uL Mean Platelet Volume 10.2 7.4-10.4 FL Neutrophils (%) (Auto) 68 42-75 % Lymphocytes (%) (Auto) 21 12-44 % Monocytes (%) (Auto) 9 0-12 % Eosinophils (%) (Auto) 3 0-10 % Basophils (%) (Auto) 0 0-10 % Neutrophils # (Auto) 7.6 1.8-7.8 X 10^3 Lymphocytes # (Auto) 2.4 1.0-4.0 X 10^3 Monocytes # (Auto) 1.0 0.0-1.0 X 10^3 Eosinophils # (Auto) 0.3 0.0-0.3 10^3/uL Basophils # (Auto) 0.0 0.0-0.1 10^3/uL Sodium Level 137 135-145 MMOL/L Potassium Level 3.9 3.6-5.0 MMOL/L Chloride Level 108 H 98-107 MMOL/L Carbon Dioxide Level 19 L 21-32 MMOL/L Anion Gap 10 5-14 MMOL/L Blood Urea Nitrogen 6 L 7-18 MG/DL Creatinine 0.54 L 0.60-1.30 MG/DL Estimat Glomerular Filtration Rate > 60 BUN/Creatinine Ratio 11 Glucose Level 91 70-105 MG/DL Uric Acid 3.5 2.6-7.2 MG/DL Calcium Level 8.5 8.5-10.1 MG/DL Magnesium Level 1.6 L 1.8-2.4 MG/DL Total Bilirubin 0.2 0.1-1.0 MG/DL Aspartate Amino Transf (AST/SGOT) 17 5-34 U/L Alanine Aminotransferase (ALT/SGPT) 18 0-55 U/L Alkaline Phosphatase 90 40-136 U/L Lactate Dehydrogenase 153 125-220 U/L Total Protein 5.5 L 6.4-8.2 GM/DL Albumin 3.2 3.2-4.5 GM/DL Micro Results Microbiology 07/21/17 Urine Culture - Preliminary, Resulted Gram Negative David My Orders Orders - IZZY QUEZADA MD Cbc With Automated Diff (07/21/17 13:31) Comprehensive Metabolic Panel (07/21/17 13:31) Magnesium (07/21/17 13:31) Ua Culture If Indicated (07/21/17 13:31) Uric Acid (07/21/17 13:31) LDH (07/21/17 13:31) Saline Lock/Iv-Start (07/21/17 13:31) Urine Culture (07/21/17 13:40) Ns Iv 1000 Ml (Sodium Chloride 0.9%) (07/21/17 14:47) Ceftriaxone Injection (Rocephin Injectio (07/21/17 15:15) Magnesium 1 Gm/100 Ml Ivpb (Magnesium Panda (07/21/17 16:00) Ondansetron Injection (Zofran Injectio (07/21/17 16:00) Lorazepam Injection (Ativan Injection) (07/21/17 16:00) Rx-Ondansetron Po (Rx-Zofran Po) (07/21/17 17:27) Medications Given in ED Vital Signs/I&O Vital Sign - Last 12Hours 07/21/17 07/21/17 13:29 17:43 Temp 97.8 97.8 Pulse 87 82 Resp 18 16 B/P (MAP) 107/65 (79) Pulse Ox 99 99 O2 Delivery Room Air Blood Pressure Mean: 79 Progress Note : Progress Note Through the course of patient's ER stay it was discovered that she takes numerous doses of benzodiazepines daily. Because of her nausea and vomiting she was unable to keep her benzodiazepines down. She was evaluated for preeclampsia/eclampsia and findings were not consistent with that pathology. Case was discussed with Dr. Flower. We both agree she is likely having benzodiazepine withdraw seizure-like activity. NST was performed his recommendation and was normal with only one contraction and reactive heart tones. Patient was given a dose of IV Ativan, Zofran, IV fluids, IV magnesium, and Rocephin. She was found to have a mild urinary tract infection. A culture was performed when she was seen on women's services last night and grew out gram-negative bacteria. Patient was discharged home in good condition. Dr. Flower recommended adding Zofran to her antiemetic treatment. She was encouraged to continue with Diclegis as well. Departure Impression Impression: Primary Impression: Seizure-like activity Additional Impressions: Nausea and vomiting Qualified Codes: R11.2 - Nausea with vomiting, unspecified Urinary tract infection Qualified Codes: N39.0 - Urinary tract infection, site not specified Qualified Codes: Z34.90 - Encounter for supervision of normal , unspecified, unspecified trimester Benzodiazepine withdrawal Qualified Codes: F13.239 - Sedative, hypnotic or anxiolytic dependence with withdrawal, unspecified Disposition: 01 HOME, SELF-CARE Condition: Improved Departure-Patient Inst. Decision time for Depature: 17:21 Referrals: STEPHANIE FLOWER MD (PCP/Family) Primary Care Physician Patient Instructions: Nausea and Vomiting, Adult, Seizures, Adult (DC) Add. Discharge Instructions: Drink plenty of clear liquids. Complete your antibiotic as prescribed. Follow- up with your behavioral health provider and Dr. Flower as soon as possible to discuss transitioning benzodiazepines to a more desirable medication. Avoid any activity that could potentially cause you harm should you have another seizure-like episode until you're otherwise directed by your doctors. This includes driving, swimming, any activity with heights, etc. Continue taking Diclegis every night for prevention of nausea and vomiting. Use Zofran (ondansetron) for any breakthrough nausea and vomiting. All discharge instructions reviewed with patient and/or family. Voiced understanding. Scripts Cephalexin (Keflex) 500 Mg Capsule 500 MG PO QID, #28 CAP Prov: IZZY QUEZADA MD 07/21/17 Ondansetron (Zofran Odt) 4 Mg Tab.rapdis 4 MG SL Q4H Y for NAUSEA/VOMITING-1ST LINE, #20 TAB Prov: IZZY QUEZADA MD 07/21/17 Copy Copies To 1: STEPHANIE FLOWER MD, JOSHUA T MD Jul 21, 2017 17:26
[2017-07-21] MEDS ORDERED: ONDA4TAB8 SL (17:27)
[2017-07-21] MEDS ORDERED: RX-ONDANSETRON 4 MG ODT (ZOFRAN) PPK #4 SL STA (17:27)
[2017-07-21] MEDS ORDERED: CEPH-507 PO (17:27)
[2017-07-21 17:43] VITALS: BP 102/65
== END 2017-07-21 17:43 | disposition home or self-care (01) ==
LOC: EDUNIT# 13:21 → ER 13:23
DX: O99.89 Other specified diseases and conditions complicating pregnancy, childbirth and the puerperium (principal); R25.8 Other abnormal involuntary movements; O23.43 Unspecified infection of urinary tract in pregnancy, third trimester; O99.323 Drug use complicating pregnancy, third trimester; F13.239 Sedative, hypnotic or anxiolytic dependence with withdrawal, unspecified; O99.341 Other mental disorders complicating pregnancy, first trimester; F41.9 Anxiety disorder, unspecified; F32.9 Major depressive disorder, single episode, unspecified; F43.10 Post-traumatic stress disorder, unspecified; O99.353 Diseases of the nervous system complicating pregnancy, third trimester; G43.909 Migraine, unspecified, not intractable, without status migrainosus; Z77.22 Contact with and (suspected) exposure to environmental tobacco smoke (acute) (chronic); Z87.81 Personal history of (healed) traumatic fracture; Z3A.22 22 weeks gestation of pregnancy
CPT/HCPCS: 36415; 80053; 81000; 83615; 83735; 84550; 85025; 87088

== ENCOUNTER 2017-08-02 11:46 | Outpatient (CLI) | payer MEDICAID ==
[~2017-08-02] VITALS: Ht 182.9 cm; Wt 81.6 kg
[~2017-08-02 11:46] MED LIST changes: +CEPH-507 PO; +ONDA4TAB8 SL
[2017-08-02 12:18] VITALS: BP 143/83
[2017-08-02] MEDS ORDERED: DIAZ5TAB PO (12:33)
[2017-08-02] MEDS ORDERED: INFLUENZA TRIvalent 2017-2018 0.5 ML/45 MCG SYR IM ONE (12:45)
--- NOTE | 2017-08-05 14:08 | Physician Query-Final Dx ---
JAIDEN MARTÍNEZ 08/05/17 1408: Clinic Account Progress/Dx Physician Query: Please give diagnosis Date of Service Aug 02, 2017 at 11:46 STEPHANIE CLAYTON MD 08/05/17 1454: Clinic Account Progress/Dx DIAGNOSIS: Diagnosis false labor JAIDEN MARTÍNEZ Aug 05, 2017 14:08 STEPHANIE CLAYTON MD Aug 05, 2017 14:54
== END 2017-08-02 13:05 | disposition home or self-care (01) ==
LOC: WSo 11:46 → LDRP 11:47 → WSo 13:05
PROVIDERS: ATTEND Obstetrics & Gynecology
DX: O47.03 False labor before 37 completed weeks of gestation, third trimester (principal); Z3A.36 36 weeks gestation of pregnancy; Z23 Encounter for immunization
CPT/HCPCS: 90471; 99214

== ENCOUNTER 2017-08-09 01:19 | Outpatient (CLI) | payer MEDICAID ==
[~2017-08-09] VITALS: Ht 182.9 cm; Wt 110.1 kg
[~2017-08-09 01:19] MED LIST changes: +DIAZ5TAB PO
[2017-08-09 01:39] VITALS: BP 151/89
[2017-08-09 01:49] VITALS: BP 147/90
[2017-08-09] MEDS ORDERED: PREN1TAB19 PO (01:58)
[2017-08-09] MEDS ORDERED: BUSP10TA95 PO (01:58)
[2017-08-09] MEDS ORDERED: GABA300S2 PO (01:58)
[2017-08-09 02:00] VITALS: BP 138/92
[2017-08-09] MEDS ORDERED: CEPH-507 PO (02:10)
--- NOTE | 2017-08-12 11:58 | Physician Query-Final Dx ---
JAIDEN MARTÍNEZ 08/12/17 1158: Clinic Account Progress/Dx Physician Query: Please give diagnosis Date of Service Aug 09, 2017 at 01:19 STEPHANIE CLAYTON MD 08/12/17 1245: Clinic Account Progress/Dx DIAGNOSIS: Diagnosis false labor JAIDEN MARTÍNEZ Aug 12, 2017 11:58 STEPHANIE CLAYTON MD Aug 12, 2017 12:45
== END 2017-08-09 02:20 | disposition home or self-care (01) ==
LOC: WSo 01:19 → LDRP 01:20 → WSo 02:20
PROVIDERS: ATTEND Obstetrics & Gynecology
DX: O47.1 False labor at or after 37 completed weeks of gestation (principal); Z3A.37 37 weeks gestation of pregnancy
CPT/HCPCS: 99213

== ENCOUNTER 2017-08-13 16:25 | Inpatient (IN) | payer MEDICAID ==
[~2017-08-13] VITALS: Ht 182.9 cm; Wt 110.1 kg
[~2017-08-13 16:25] MED LIST changes: +BUSP10TA95 PO; +GABA300S2 PO; +PREN1TAB19 PO
[2017-08-13 16:31] VITALS: BP 153/77
[2017-08-13] MEDS ORDERED: HYDR50TA76 PO (16:38)
[2017-08-13] MEDS: D5 LR IV SOLUTION 1,000 ML IV SCH (17:30)
[2017-08-13 18:00] VITALS: BP 141/71
[2017-08-13 18:52] LABS: BASOPHILS % (AUTO) 0 % (0-10); EOSINOPHILS # (AUTO) 0.2 10^3/uL (0.0-0.3); EOSINOPHILS % (AUTO) 2 % (0-10); HEMATOCRIT 29 % (35-52); HEMOGLOBIN 9.9 G/DL (11.5-16.0); LYMPHOCYTES # (AUTO) 2.4 X 10^3 (1.0-4.0); LYMPHOCYTES % (AUTO) 20 % (12-44); MEAN CORPUSCULAR HEMOGLOBIN 30 PG (25-34); MEAN CORPUSCULAR HGB CONC 34 G/DL (32-36); MEAN CORPUSCULAR VOLUME 87 FL (80-99); MEAN PLATELET VOLUME 10.5 FL (7.4-10.4); MONOCYTES # (AUTO) 1.2 X 10^3 (0.0-1.0); MONOCYTES % (AUTO) 10 % (0-12); NEUTROPHILS # (AUTO) 7.8 X 10^3 (1.8-7.8); NEUTROPHILS % (AUTO) 67 % (42-75); PLATELET COUNT 256 10^3/uL (130-400); RED BLOOD COUNT 3.34 10^6/uL (4.35-5.85); RED CELL DISTRIBUTION WIDTH 14.5 % (10.0-14.5); WHITE BLOOD COUNT 11.7 10^3/uL (4.3-11.0)
[2017-08-13 19:10] LABS: ALANINE AMINOTRANSFERASE 12 U/L (0-55); ALBUMIN 3.2 GM/DL (3.2-4.5); ALKALINE PHOSPHATASE 106 U/L (40-136); BILIRUBIN,TOTAL 0.2 MG/DL (0.1-1.0); BUN/CREATININE RATIO 16; CALCIUM 8.7 MG/DL (8.5-10.1); CARBON DIOXIDE 19 MMOL/L (21-32); CHLORIDE 107 MMOL/L (98-107); CREATININE SERUM 0.62 MG/DL (0.60-1.30); GFR ESTIMATED > 60; GLUCOSE 94 MG/DL (70-105); POTASSIUM 3.7 MMOL/L (3.6-5.0); SODIUM 136 MMOL/L (135-145); TOTAL PROTEIN 5.9 GM/DL (6.4-8.2)
[2017-08-13 19:21] LABS: BILIRUBIN,URINE NEGATIVE (NEGATIVE); CLARITY,URINE VERY CLOUDY; COLOR,URINE YELLOW; GLUCOSE, URINE (UA) NEGATIVE (NEGATIVE); KETONES,URINE 1+ (NEGATIVE); LEUKOCYTE ESTERASE ,URINE 1+ (NEGATIVE); NITRITE,URINE POSITIVE (NEGATIVE); PH,URINE 6 (5-9); PROTEIN,URINE 1+ (NEGATIVE); UROBILINOGEN,URINE NORMAL (NORMAL)
[2017-08-13 19:32] LABS: BACTERIA,URINE LARGE /HPF
[2017-08-13 20:09] VITALS: BP 131/61
--- NOTE | 2017-08-13 22:09 | History & Physical ---
History and Physical Date Seen by Provider: Aug 13, 2017 Time Seen by Provider: 22:01 This patient is a 34-year-old 1 white female with a due date of August 29, 2017 putting her at 37-5/7 weeks' gestation. Her is complicated by severe dependence on/benzodiazepines. Presented this evening with complaint of contractions pain and pressure. She denied ruptured membranes or bleeding. She has had a GBS culture done at 35 weeks gestation that was negative. Over the last several weeks patient has been gradually withdrawn from her pain is substantial Benzo use by way of a gradual taper of Valium. She reports that her last dose of Valium was 2-1/2 mg yesterday. She had been on at least 30mg x 3 times a day as recently as 3 weeks ago. She does take other medications including hydroxyzine she also takes BuSpar and she takes other medications which she does not always reveal to her OB provider. Plan had been for induction of labor at 38 weeks gestation primarily due to her progressive PIH. Patient here this evening and tapered as far she has been on the benzo and was having contractions and with elevated blood pressure decision made to admit her with plan for labor induction in the morning. This patient has experienced seizures with benzo withdrawal during this . Allergies are to Cipro and sulfa drugs which cause hives Medications include Valium 2.5-5 mg once twice or 3 times a day and again the patient has been on a fairly successful tapered patient also takes Atarax 25 mg every 6 when necessary patient also takes Buspar 10 mg 3 times a day Past medical history, past surgical history, obstetric history, and family histories are per the antepartum record HEENT exam is normal Neck is supple no lymphadenopathy no thyromegaly Abdomen is gravid soft nontender nondistended Extreme show no clubbing cyanosis. There is no Homans sign. There is some pretibial pitting edema that is normal. Pelvic exam is deferred Lab work is as follows Laboratory Tests Test 08/13/17 17:35 08/13/17 18:40 Range/Units Urine Color YELLOW Urine Clarity VERY CLOUDY H Urine pH 6 5-9 Urine Specific [place] 1.020 1.016-1.022 Urine Protein 1+ H NEGATIVE Urine Glucose (UA) NEGATIVE NEGATIVE Urine Ketones 1+ H NEGATIVE Urine Nitrite POSITIVE H NEGATIVE Urine Bilirubin NEGATIVE NEGATIVE Urine Urobilinogen NORMAL NORMAL MG/DL Urine Leukocyte Esterase 1+ H NEGATIVE Urine RBC (Auto) NEGATIVE NEGATIVE Urine RBC 2-5 H /HPF Urine WBC 2-5 /HPF Urine Squamous Epithelial Cells 10-25 H /HPF Urine Crystals NONE /LPF Urine Bacteria LARGE H /HPF Urine Casts NONE /LPF Urine Mucus NEGATIVE /LPF Urine Culture Indicated NO Urine Creatinine 119 30-125 MG/DL Urine Protein/Creatinine Ratio 0.20 White Blood Count 11.7 H 4.3-11.0 10^3/uL Red Blood Count 3.34 L 4.35-5.85 10^6/uL Hemoglobin 9.9 L 11.5-16.0 G/DL Hematocrit 29 L 35-52 % Mean Corpuscular Volume 87 80-99 FL Mean Corpuscular Hemoglobin 30 25-34 PG Mean Corpuscular Hemoglobin Concent 34 32-36 G/DL Red Cell Distribution Width 14.5 10.0-14.5 % Platelet Count 256 130-400 10^3/uL Mean Platelet Volume 10.5 H 7.4-10.4 FL Neutrophils (%) (Auto) 67 42-75 % Lymphocytes (%) (Auto) 20 12-44 % Monocytes (%) (Auto) 10 0-12 % Eosinophils (%) (Auto) 2 0-10 % Basophils (%) (Auto) 0 0-10 % Neutrophils # (Auto) 7.8 1.8-7.8 X 10^3 Lymphocytes # (Auto) 2.4 1.0-4.0 X 10^3 Monocytes # (Auto) 1.2 H 0.0-1.0 X 10^3 Eosinophils # (Auto) 0.2 0.0-0.3 10^3/uL Basophils # (Auto) 0.0 0.0-0.1 10^3/uL Sodium Level 136 135-145 MMOL/L Potassium Level 3.7 3.6-5.0 MMOL/L Chloride Level 107 98-107 MMOL/L Carbon Dioxide Level 19 L 21-32 MMOL/L Anion Gap 10 5-14 MMOL/L Blood Urea Nitrogen 10 7-18 MG/DL Creatinine 0.62 0.60-1.30 MG/DL Estimat Glomerular Filtration Rate > 60 BUN/Creatinine Ratio 16 Glucose Level 94 70-105 MG/DL Calcium Level 8.7 8.5-10.1 MG/DL Total Bilirubin 0.2 0.1-1.0 MG/DL Aspartate Amino Transf (AST/SGOT) 12 5-34 U/L Alanine Aminotransferase (ALT/SGPT) 12 0-55 U/L Alkaline Phosphatase 106 40-136 U/L Lactate Dehydrogenase 135 125-220 U/L Total Protein 5.9 L 6.4-8.2 GM/DL Albumin 3.2 3.2-4.5 GM/DL It is notable that there is 1+ proteinuria Vital Signs Date Time Temp Pulse Resp B/P (MAP) Pulse Ox O2 Delivery O2 Flow Rate FiO2 08/13/17 19:00 08/13/17 18:00 78 141/71 (94) 08/13/17 16:31 80 18 153/77 (102) Room Air Blood pressure is elevated somewhat moderately over her baseline Assessment and plan 37-5/7 weeks' gestation in a patient with mild preeclampsia/PIH and a significant benzodiazepine dependence from which she has gradually tapered her use of that medication. Patient is now admitted with plan labor induction with Pitocin in the morning Term with PIH and a history of benzodiazepine dependence Allergies and Home Medications Allergies Coded Allergies: Sulfa (Sulfonamide Antibiotics) (Unverified Adverse Reaction, Unknown, ) ciprofloxacin (Unverified Adverse Reaction, Unknown, 11/18/16) Home Medications Buspirone HCl 10 Mg Tablet, 20 MG PO BID, (Reported) Cephalexin 500 Mg Capsule, 500 MG PO QID, (Reported) Diazepam 5 Mg Tablet, 5 MG PO PRN, (Reported) Gabapentin 300 Mg/6 Ml Solution, 300 MG PO QID, (Reported) Hydroxyzine HCl 50 Mg Tablet, 50 MG PO Q6H, (Reported) Lurasidone HCl 40 Mg Tablet, 40 MG PO DAILY, (Reported) Mirtazapine 30 Mg Tablet, 30 MG PO DAILY, (Reported) Vit/Iron Fumarate/FA 1 Each Tablet, 1 EACH PO DAILY, (Reported) Clinical Quality Measures DVT/VTE Risk/Contraindication: Risk Factor Score Per Nursin RFS Level Per Nursing on Admit: 2=Moderate STEPHANIE CLAYTON MD Aug 13, 2017 10:09 pm
[2017-08-13] MEDS ORDERED: hydrOXYzine (ATARAX) 10 MG TAB PO PRN (22:15)
[2017-08-13 23:00] VITALS: BP 131/63
[2017-08-14] VITALS (56 sets, daily range): BP systolic 98–147; BP diastolic 51–83
[2017-08-14] MEDS: OXYTOCIN/NORMAL SALINE 500 ML IV SCH ×3 (00:28→22:40)
[2017-08-14] MEDS: CATHETER FLUSH 10 ML SYR IV SCH ×2 (00:28→22:40)
[2017-08-14] MEDS: D5 LR IV SOLUTION 1,000 ML IV SCH ×3 (00:28→13:40)
--- NOTE | 2017-08-14 07:48 | Progress Note-Standard ---
Standard Progress Note Progress Notes/Assess & Plan Date Seen by Provider: Aug 14, 2017 Time Seen by Provider: 07:44 Progress/Assessment & Plan This patient is without complaint. She does feel that her anxiety is increasing , however she feels that she can get through the delivery today before needing to resume her benzodiazepines. She complains of mild headache. Patient denies rupture membranes or bleeding. She does feel that her contractions are beginning to increase in intensity. She states that she contracted with some frequency and regularity through the night. The contractions do waxed and waned. Vital Signs Date Time Temp Pulse Resp B/P (MAP) Pulse Ox O2 Delivery O2 Flow Rate FiO2 08/14/17 06:18 98.5 73 18 143/78 (99) Room Air 08/13/17 23:00 98.6 82 18 131/63 (85) Room Air 08/13/17 20:09 98.0 75 18 131/61 (84) Room Air 08/13/17 19:00 08/13/17 18:00 78 141/71 (94) 08/13/17 16:31 80 18 153/77 (102) Room Air I & O 08/14/17 07:00 Intake Total 600 ml Balance 600 ml Blood pressures are a bit elevated but stable The abdomen is gravid and nontender. Extremities show no clubbing or cyanosis. There is no Homans sign. DTRs are 3 + over 4 globally Pelvic exam is pending Assessment and plan 37-6/7 weeks' gestation with PIH that is relatively stable this point. Patient had proteinuria on admission consistent with mild preeclampsia. Patient is currently on Pitocin for induction and/or augmentation anticipation is for vaginal delivery STEPHANIE CLAYTON MD Aug 14, 2017 7:48 am
[2017-08-14] MEDS ORDERED: LACTATED RINGERS 1,000 ML IV ONE (09:16)
[2017-08-14] MEDS ORDERED: SUFENTA 0.6MCG/ML BUPIVA 0.125 100 ML ONE ×2 (09:17→10:11)
[2017-08-14] MEDS ORDERED: fentaNYL INJECTION 100 MCG/2 ML AMP ONE ×2 (10:11→19:08)
[2017-08-14] MEDS ORDERED: BUPIVACAINE 0.25% 30 ML (SENSORCAINE) VIAL ONE (10:11)
[2017-08-14] MEDS ORDERED: LACTATED RINGERS 1,000 ML IV SCH (10:55)
[2017-08-14] MEDS ORDERED: NALOXONE 0.4 MG/ML 1 ML (NARCAN) VIAL IV PRN ×2 (11:00)
[2017-08-14] MEDS ORDERED: METOCLOPRAMIDE INJ 10 MG/2 ML (REGLAN) IV PRN (11:00)
[2017-08-14] MEDS ORDERED: ONDANSETRON 4 MG/2 ML (SDV) Z0FRAN IV PRN (11:00)
[2017-08-14] MEDS ORDERED: EPIDURAL (SUFENTA 0.6MCG/ML BUPIVA 0.125%) 100 ML BAG EPI PRN (11:00)
[2017-08-14] MEDS ORDERED: diphenhydrAMINE 50 MG/ML INJ (BENADRYL) IV PRN (11:00)
[2017-08-14] MEDS: ceFAZolin 2 GM IV Premixed 50 ML IV SCH (15:48)
[2017-08-14] MEDS ORDERED: METOCLOPRAMIDE INJ 10 MG/2 ML (REGLAN) IV ONE (18:45)
[2017-08-14] MEDS ORDERED: CITRIC ACID/SOB CIT (BICITRA) 30 ML UDC PO ONE (18:45)
[2017-08-14] MEDS ORDERED: FAMOTIDINE 20MG/2ML IV (PEPCID) IV ONE (18:45)
--- NOTE | 2017-08-14 18:50 | Progress Note-Standard ---
Standard Progress Note Progress Notes/Assess & Plan Date Seen by Provider: Aug 14, 2017 Time Seen by Provider: 18:48 Progress/Assessment & Plan This patient is without complaint. She does feel that her anxiety is increasing , however she feels that she can get through the delivery today before needing to resume her benzodiazepines. She complains of mild headache. Patient denies rupture membranes or bleeding. She does feel that her contractions are beginning to increase in intensity. She states that she contracted with some frequency and regularity through the night. The contractions do waxed and waned. Vital Signs Date Time Temp Pulse Resp B/P (MAP) Pulse Ox O2 Delivery O2 Flow Rate FiO2 08/14/17 06:18 98.5 73 18 143/78 (99) Room Air 08/13/17 23:00 98.6 82 18 131/63 (85) Room Air 08/13/17 20:09 98.0 75 18 131/61 (84) Room Air 08/13/17 19:00 08/13/17 18:00 78 141/71 (94) 08/13/17 16:31 80 18 153/77 (102) Room Air I & O 08/14/17 07:00 Intake Total 600 ml Balance 600 ml Blood pressures are a bit elevated but stable The abdomen is gravid and nontender. Extremities show no clubbing or cyanosis. There is no Homans sign. DTRs are 3 + over 4 globally Pelvic exam is pending Assessment and plan 37-6/7 weeks' gestation with PIH that is relatively stable this point. Patient had proteinuria on admission consistent with mild preeclampsia. Patient is currently on Pitocin for induction and/or augmentation anticipation is for vaginal delivery Delivery 2017 at 648 p.m. Patient is without complaint. He is currently on 40 mU/m of Pitocin and has been for the past hour. Her cervix is more than a centimeter dilated and still relatively long. The presenting part is high in the pelvis and not engaged. heart rate pattern is normal and reassuring Have discussed with the patient the options this point are to stop the Pitocin allowing her to rest overnight and continue with a serial induction with Pitocin tomorrow versus stop the Pitocin and proceed now on emergently with a this evening. This patient does not want to go through the same experience again tomorrow but would prefer to proceed with a delivery. I agree with this decision and we have called crews and we'll proceed with a delivery when the crews available. Surgical risk complication recovering follow-up. Skin had been discussed prior to admission as this patient understood that there was some chance she could end up with a and in the event that she did she want to be prepared. STEPHANIE CLAYTON MD Aug 14, 2017 6:50 pm
[2017-08-14] MEDS ORDERED: TETANUS,DIPTH,PERTUSS P/F (BOOSTRIX) 0.5 ML VIAL IM ONE (19:00)
[2017-08-14] MEDS ORDERED: D5 LR IV SOLUTION 1,000 ML IV ONE (19:00)
[2017-08-14] MEDS ORDERED: ONDANSETRON 4 MG/2 ML (SDV) Z0FRAN IVP PRN (19:00)
[2017-08-14] MEDS ORDERED: MEPERIDINE (DEMEROL) INJ 100 MG/ML IM PRN (19:00)
[2017-08-14] MEDS ORDERED: MEASLES,MUMPS,RUBELLA 1 EA INJ SC ONE (19:00)
[2017-08-14] MEDS ORDERED: PROMETHAZINE INJ 25 MG/ML (PHENERGAN) AMP IM PRN (19:00)
[2017-08-14] MEDS ORDERED: HYDROcodone/APAP 10 MG/325 MG (LORTAB) TAB PO PRN (19:00)
[2017-08-14] MEDS ORDERED: hydrOXYzine (VISTARIL) 25 MG CAP PO PRN (19:00)
[2017-08-14] MEDS ORDERED: BUPIVACAINE 0.5% 30 ML (SENSORCAINE) VIAL ONE (19:07)
[2017-08-14] MEDS ORDERED: metroNIDAZOLE 500MG/100ML IVPB 100 ML IV NR (19:26)
[2017-08-14] MEDS ORDERED: ceFAZolin 2 GM IV Premixed 50 ML IV NR (19:30)
[2017-08-15 00:10] VITALS: BP 101/55
[2017-08-15] MEDS: KETOROLAC 30 MG/ML VIAL IVP SCH ×2 (00:11→05:45)
--- NOTE | 2017-08-15 01:05 | OPERATIVE REPORT ---
DATE OF SERVICE: 08/14/2017 PREOPERATIVE DIAGNOSES: Term with uterine inertia and failed to progress in labor. POSTOPERATIVE DIAGNOSIS: Term with uterine inertia and failed to progress in labor, uterine atony. OPERATIVE PROCEDURE: Primary low transverse delivery of a viable female infant with Apgars of 9 and 9 at 1 and 5 minutes respectively, weight 7 pounds 10 ounces, time of 1934 and a cord arterial blood gas of 7.30. OPERATIVE DESCRIPTION: With the patient in the supine position under satisfactory epidural analgesia, she was prepped and draped in the usual fashion for abdominal surgery. Reynaga catheter had been placed in the urinary bladder during labor that was left to dependent drainage. A Pfannenstiel incision made through the skin with a scalpel. The patient's abdomen was entered in the usual manner. Bladder retractor placed into position and a clean scalpel was used to make a 4 cm hysterotomy incision transversely across the lower uterine segment that was extended by blunt dissection as well, allowing the membranes to protrude through the incision. They were ruptured with scalpel, releasing clear fluid. The incision was extended bluntly. Wagner forceps were applied to facilitate delivery of a vigorous viable female infant. The infant had stats as noted above. The infant was bulb suctioned on delivery of the head and again on completion of delivery. The umbilical cord was doubly clamped and cut and the baby passed to the pediatric attendant in attendance for the delivery. Cord bloods were obtained and the placenta delivered partially spontaneously. There was a large portion of membranes that were densely adherent to the posterior surface of the uterus. The uterus actually required intentional inversion in order to remove the membranes from the internal surface of the uterus. Once those were removed and the uterus was righted and the uterine incision closed with a running lock suture of 2-0 Vicryl. Hemostasis was satisfactory, although the uterus was quite atonic. Modified B-Azevedo suture was placed using 2-0 chromic sutures. This compressed uterus nicely and controlled the blood loss. The uterus was now returned to abdominal cavity, all blood clot and debris removed from the abdominal cavity. Sponge and needle counts correct, hemostasis assured, the anterior parietal peritoneum was closed with a running suture of 2-0 Vicryl. Rectus muscles were closed with that suture as well. The rectus fascia was closed with 2-0 Vicryl, subcutaneous tissue with 2-0 Vicryl and the skin was stapled. Sponge and needle counts were correct at the end of the procedure. Estimated blood loss for procedure was around 500 mL. The patient tolerated the procedure well and was transferred to the recovery room in stable condition. The infant had been taken stable to the full term nursery under the care of Dr. Parry. Job ID: [id number] DocumentID: [id number] Dictated Date: 08/14/2017 20:05:29 Ocean Forwarder Date: 08/15/2017 01:05:05 Dictated By: STEPHANIE CLAYTON MD
[2017-08-15] MEDS: ceFAZolin 2 GM IV Premixed 50 ML IV SCH ×2 (01:25→06:44)
[2017-08-15] MEDS: oxyCODONE/APAP 10/325MG (PERCOCET 10) TABLET PO PRN ×4 (01:27→15:16)
[2017-08-15] MEDS: OXYTOCIN/NORMAL SALINE 500 ML IV SCH (02:07)
[2017-08-15 04:09] VITALS: BP 137/76
[2017-08-15] MEDS: DOCUSATE SODIUM 100 MG (COLACE) CAP PO SCH ×3 (06:42→20:56)
[2017-08-15] MEDS: CATHETER FLUSH 10 ML SYR IV SCH (06:44)
--- NOTE | 2017-08-15 07:46 | Progress Note-Standard ---
Standard Progress Note Progress Notes/Assess & Plan Date Seen by Provider: Aug 15, 2017 Time Seen by Provider: 07:44 Progress/Assessment & Plan This patient is without complaint. She does feel that her anxiety is increasing , however she feels that she can get through the delivery today before needing to resume her benzodiazepines. She complains of mild headache. Patient denies rupture membranes or bleeding. She does feel that her contractions are beginning to increase in intensity. She states that she contracted with some frequency and regularity through the night. The contractions do waxed and waned. Vital Signs Date Time Temp Pulse Resp B/P (MAP) Pulse Ox O2 Delivery O2 Flow Rate FiO2 08/14/17 06:18 98.5 73 18 143/78 (99) Room Air 08/13/17 23:00 98.6 82 18 131/63 (85) Room Air 08/13/17 20:09 98.0 75 18 131/61 (84) Room Air 08/13/17 19:00 08/13/17 18:00 78 141/71 (94) 08/13/17 16:31 80 18 153/77 (102) Room Air I & O 08/14/17 07:00 Intake Total 600 ml Balance 600 ml Blood pressures are a bit elevated but stable The abdomen is gravid and nontender. Extremities show no clubbing or cyanosis. There is no Homans sign. DTRs are 3 + over 4 globally Pelvic exam is pending Assessment and plan 37-6/7 weeks' gestation with PIH that is relatively stable this point. Patient had proteinuria on admission consistent with mild preeclampsia. Patient is currently on Pitocin for induction and/or augmentation anticipation is for vaginal delivery Delivery 2017 at 648 p.m. Patient is without complaint. He is currently on 40 mU/m of Pitocin and has been for the past hour. Her cervix is more than a centimeter dilated and still relatively long. The presenting part is high in the pelvis and not engaged. heart rate pattern is normal and reassuring Have discussed with the patient the options this point are to stop the Pitocin allowing her to rest overnight and continue with a serial induction with Pitocin tomorrow versus stop the Pitocin and proceed now on emergently with a this evening. This patient does not want to go through the same experience again tomorrow but would prefer to proceed with a delivery. I agree with this decision and we have called crews and we'll proceed with a delivery when the crews available. Surgical risk complication recovering follow-up. Skin had been discussed prior to admission as this patient understood that there was some chance she could end up with a and in the event that she did she want to be prepared. August 15, 2017 Patient is without complaint. She has adequate pain control. She is ambulating and voiding and tolerating by mouth well, patient denies chest pain, denies shortness of breath, denies headache, denies nausea vomiting. Vital Signs Date Time Temp Pulse Resp B/P (MAP) Pulse Ox O2 Delivery O2 Flow Rate FiO2 08/15/17 04:09 97.8 65 16 137/76 (96) 96 Room Air 08/15/17 00:10 98.4 66 16 101/55 (70) 93 Room Air 08/14/17 22:10 97.5 62 18 110/66 (81) 97 Room Air 08/14/17 21:50 Room Air 08/14/17 21:30 97.4 65 16 113/68 (83) 98 Room Air 08/14/17 19:00 74 18 121/59 (79) Room Air 08/14/17 18:45 69 18 128/63 (84) 99 Room Air 08/14/17 18:30 72 18 128/66 (86) 99 Room Air 08/14/17 18:15 65 18 118/63 (81) 99 Room Air 08/14/17 18:00 65 18 120/66 (84) 98 Room Air 08/14/17 17:45 70 18 99 Room Air 08/14/17 17:30 74 18 128/67 (87) 98 Room Air 08/14/17 17:15 64 18 119/60 (79) 98 Room Air 08/14/17 17:00 69 18 123/59 (80) 100 Room Air 08/14/17 16:45 73 18 111/60 (77) 98 Room Air 08/14/17 16:30 68 18 116/63 (80) 99 Room Air 08/14/17 16:15 65 18 120/62 (81) 99 Room Air 08/14/17 16:00 98.0 77 18 116/60 (78) 98 Room Air 08/14/17 15:45 74 18 124/63 (83) 98 Room Air 08/14/17 15:30 77 18 120/66 (84) 98 Room Air 08/14/17 15:15 71 18 119/57 (77) 98 Room Air 08/14/17 15:00 82 18 100 Room Air 08/14/17 14:45 79 18 123/63 (83) 100 Room Air 08/14/17 14:30 76 18 117/66 (83) 100 Room Air 08/14/17 14:15 78 18 117/66 (83) 100 Room Air 08/14/17 14:00 77 18 113/60 (77) 100 Room Air 08/14/17 13:45 65 18 120/56 (77) 98 Room Air 08/14/17 13:30 98.2 83 18 118/57 (77) 100 Room Air 08/14/17 13:15 65 18 120/56 (77) 98 Room Air 08/14/17 13:00 69 18 123/64 (83) 99 Room Air 08/14/17 12:45 69 18 116/59 (78) 99 Room Air 08/14/17 12:30 77 18 120/67 (84) 99 Room Air 08/14/17 12:15 68 18 103/55 (71) 98 Room Air 08/14/17 12:00 68 18 103/55 (71) 98 Room Air 08/14/17 11:45 74 18 115/55 (75) 98 Room Air 08/14/17 11:30 66 18 98/56 (70) 98 Room Air 08/14/17 11:15 68 18 110/59 (76) 98 Room Air 08/14/17 11:00 71 18 102/51 (68) 97 Room Air 08/14/17 10:55 97.8 75 18 100/52 (68) 98 Room Air 08/14/17 10:50 71 18 102/54 (70) 97 Room Air 08/14/17 10:45 83 18 108/53 (71) 97 Room Air 08/14/17 10:40 85 18 123/66 (85) 97 Room Air 08/14/17 10:35 92 18 126/66 (86) 98 Room Air 08/14/17 10:30 77 18 131/77 (95) 99 Room Air 08/14/17 10:26 76 18 140/66 (90) 97 Room Air 08/14/17 10:23 75 18 136/81 (99) 100 Room Air 08/14/17 10:21 73 18 130/71 (90) 100 Room Air 08/14/17 10:15 72 18 135/68 (90) Room Air 08/14/17 10:00 73 18 136/77 (96) Room Air 08/14/17 09:45 70 18 129/65 (86) Room Air 08/14/17 09:30 71 18 126/74 (91) Room Air 08/14/17 09:15 75 18 129/75 (93) Room Air 08/14/17 09:00 75 18 130/76 (94) Room Air 08/14/17 08:45 70 18 129/78 (95) Room Air 08/14/17 08:30 72 18 137/77 (97) Room Air 08/14/17 08:15 78 18 147/83 (104) Room Air 08/14/17 08:00 98.0 75 18 133/75 (94) Room Air I & O 08/15/17 07:00 Intake Total 5450 ml Output Total 1750 ml Balance 3700 ml Vital signs are stable. Patient is afebrile. The abdomen is benign. The fundus is firm below the umbilicus and nontender. The surgical incision is clean dry and intact. Extremities show no clubbing cyanosis. There is no Homans sign. There is some pretibial pitting edema that is within the range of normal. Assessment and plan postoperative day number 1 status post primary delivery doing well. Patient will have routine convalescence care until ready for discharge home STEPHANIE CLAYTON MD Aug 15, 2017 7:46 am
[2017-08-15 08:50] VITALS: BP 127/76
[2017-08-15] MEDS ORDERED: IBUPROFEN 800 MG (MOTRIN) TAB PO ONE (12:59)
[2017-08-15 13:00] VITALS: BP 122/65
[2017-08-15] MEDS: IBUPROFEN 800 MG (MOTRIN) TAB PO SCH ×2 (13:05→20:06)
[2017-08-15] MEDS: CEPHALEXIN 250 MG (KEFLEX) CAP PO SCH ×2 (13:05→20:57)
[2017-08-15] MEDS: DIAZEPAM 2 MG (VALIUM) TAB PO PRN ×2 (15:15→20:58)
[2017-08-15] MEDS: hydrOXYzine (VISTARIL) 25 MG CAP PO PRN ×2 (15:15→20:57)
--- NOTE | 2017-08-15 15:19 | Anesthesia-Regional Post-Op ---
Regional Patient Condition Mental Status: Alert, Oriented x3 Circulation: Same as Pre-Op Headache: Absent Sensation: Full Recovery Motor Block: Absent Post Op Complications Complications None Follow Up Care/Instructions Patient Instructions None needed. Anesthesia/Patient Condition Patient is doing well, no complaints, stable vital signs, no apparent adverse anesthesia problems. No complications reported per nursing. D[place] home [facility] [place]: Yes MICHAEL HOPPER CRNA Aug 15, 2017 15:19
[2017-08-15 18:29] VITALS: BP 144/88
[2017-08-15 23:51] VITALS: BP 145/83
[2017-08-16] MEDS: KETOROLAC 30 MG/ML VIAL IVP SCH (01:18)
[2017-08-16] MEDS: oxyCODONE/APAP 10/325MG (PERCOCET 10) TABLET PO PRN ×4 (01:18→20:44)
[2017-08-16] MEDS: IBUPROFEN 800 MG (MOTRIN) TAB PO SCH ×3 (02:29→17:10)
[2017-08-16 06:12] VITALS: BP 112/68
--- NOTE | 2017-08-16 07:56 | Progress Note-Standard ---
Standard Progress Note Progress Notes/Assess & Plan Date Seen by Provider: Aug 16, 2017 Time Seen by Provider: 07:55 Progress/Assessment & Plan This patient is without complaint. She does feel that her anxiety is increasing , however she feels that she can get through the delivery today before needing to resume her benzodiazepines. She complains of mild headache. Patient denies rupture membranes or bleeding. She does feel that her contractions are beginning to increase in intensity. She states that she contracted with some frequency and regularity through the night. The contractions do waxed and waned. Vital Signs Date Time Temp Pulse Resp B/P (MAP) Pulse Ox O2 Delivery O2 Flow Rate FiO2 08/14/17 06:18 98.5 73 18 143/78 (99) Room Air 08/13/17 23:00 98.6 82 18 131/63 (85) Room Air 08/13/17 20:09 98.0 75 18 131/61 (84) Room Air 08/13/17 19:00 08/13/17 18:00 78 141/71 (94) 08/13/17 16:31 80 18 153/77 (102) Room Air I & O 08/14/17 07:00 Intake Total 600 ml Balance 600 ml Blood pressures are a bit elevated but stable The abdomen is gravid and nontender. Extremities show no clubbing or cyanosis. There is no Homans sign. DTRs are 3 + over 4 globally Pelvic exam is pending Assessment and plan 37-6/7 weeks' gestation with PIH that is relatively stable this point. Patient had proteinuria on admission consistent with mild preeclampsia. Patient is currently on Pitocin for induction and/or augmentation anticipation is for vaginal delivery Delivery 2017 at 648 p.m. Patient is without complaint. He is currently on 40 mU/m of Pitocin and has been for the past hour. Her cervix is more than a centimeter dilated and still relatively long. The presenting part is high in the pelvis and not engaged. heart rate pattern is normal and reassuring Have discussed with the patient the options this point are to stop the Pitocin allowing her to rest overnight and continue with a serial induction with Pitocin tomorrow versus stop the Pitocin and proceed now on emergently with a this evening. This patient does not want to go through the same experience again tomorrow but would prefer to proceed with a delivery. I agree with this decision and we have called crews and we'll proceed with a delivery when the crews available. Surgical risk complication recovering follow-up. Skin had been discussed prior to admission as this patient understood that there was some chance she could end up with a and in the event that she did she want to be prepared. August 15, 2017 Patient is without complaint. She has adequate pain control. She is ambulating and voiding and tolerating by mouth well, patient denies chest pain, denies shortness of breath, denies headache, denies nausea vomiting. Vital Signs Date Time Temp Pulse Resp B/P (MAP) Pulse Ox O2 Delivery O2 Flow Rate FiO2 08/15/17 04:09 97.8 65 16 137/76 (96) 96 Room Air 08/15/17 00:10 98.4 66 16 101/55 (70) 93 Room Air 08/14/17 22:10 97.5 62 18 110/66 (81) 97 Room Air 08/14/17 21:50 Room Air 08/14/17 21:30 97.4 65 16 113/68 (83) 98 Room Air 08/14/17 19:00 74 18 121/59 (79) Room Air 08/14/17 18:45 69 18 128/63 (84) 99 Room Air 08/14/17 18:30 72 18 128/66 (86) 99 Room Air 08/14/17 18:15 65 18 118/63 (81) 99 Room Air 08/14/17 18:00 65 18 120/66 (84) 98 Room Air 08/14/17 17:45 70 18 99 Room Air 08/14/17 17:30 74 18 128/67 (87) 98 Room Air 08/14/17 17:15 64 18 119/60 (79) 98 Room Air 08/14/17 17:00 69 18 123/59 (80) 100 Room Air 08/14/17 16:45 73 18 111/60 (77) 98 Room Air 08/14/17 16:30 68 18 116/63 (80) 99 Room Air 08/14/17 16:15 65 18 120/62 (81) 99 Room Air 08/14/17 16:00 98.0 77 18 116/60 (78) 98 Room Air 08/14/17 15:45 74 18 124/63 (83) 98 Room Air 08/14/17 15:30 77 18 120/66 (84) 98 Room Air 08/14/17 15:15 71 18 119/57 (77) 98 Room Air 08/14/17 15:00 82 18 100 Room Air 08/14/17 14:45 79 18 123/63 (83) 100 Room Air 08/14/17 14:30 76 18 117/66 (83) 100 Room Air 08/14/17 14:15 78 18 117/66 (83) 100 Room Air 08/14/17 14:00 77 18 113/60 (77) 100 Room Air 08/14/17 13:45 65 18 120/56 (77) 98 Room Air 08/14/17 13:30 98.2 83 18 118/57 (77) 100 Room Air 08/14/17 13:15 65 18 120/56 (77) 98 Room Air 08/14/17 13:00 69 18 123/64 (83) 99 Room Air 08/14/17 12:45 69 18 116/59 (78) 99 Room Air 08/14/17 12:30 77 18 120/67 (84) 99 Room Air 08/14/17 12:15 68 18 103/55 (71) 98 Room Air 08/14/17 12:00 68 18 103/55 (71) 98 Room Air 08/14/17 11:45 74 18 115/55 (75) 98 Room Air 08/14/17 11:30 66 18 98/56 (70) 98 Room Air 08/14/17 11:15 68 18 110/59 (76) 98 Room Air 08/14/17 11:00 71 18 102/51 (68) 97 Room Air 08/14/17 10:55 97.8 75 18 100/52 (68) 98 Room Air 08/14/17 10:50 71 18 102/54 (70) 97 Room Air 08/14/17 10:45 83 18 108/53 (71) 97 Room Air 08/14/17 10:40 85 18 123/66 (85) 97 Room Air 08/14/17 10:35 92 18 126/66 (86) 98 Room Air 08/14/17 10:30 77 18 131/77 (95) 99 Room Air 08/14/17 10:26 76 18 140/66 (90) 97 Room Air 08/14/17 10:23 75 18 136/81 (99) 100 Room Air 08/14/17 10:21 73 18 130/71 (90) 100 Room Air 08/14/17 10:15 72 18 135/68 (90) Room Air 08/14/17 10:00 73 18 136/77 (96) Room Air 08/14/17 09:45 70 18 129/65 (86) Room Air 08/14/17 09:30 71 18 126/74 (91) Room Air 08/14/17 09:15 75 18 129/75 (93) Room Air 08/14/17 09:00 75 18 130/76 (94) Room Air 08/14/17 08:45 70 18 129/78 (95) Room Air 08/14/17 08:30 72 18 137/77 (97) Room Air 08/14/17 08:15 78 18 147/83 (104) Room Air 08/14/17 08:00 98.0 75 18 133/75 (94) Room Air I & O 08/15/17 07:00 Intake Total 5450 ml Output Total 1750 ml Balance 3700 ml Vital signs are stable. Patient is afebrile. The abdomen is benign. The fundus is firm below the umbilicus and nontender. The surgical incision is clean dry and intact. Extremities show no clubbing cyanosis. There is no Homans sign. There is some pretibial pitting edema that is within the range of normal. Assessment and plan postoperative day number 1 status post primary delivery doing well. Patient will have routine convalescence care until ready for discharge home August 16, 2017 Patient is without complaint. She does say that her pain control has been just barely adequate she is ambulating and voiding and tolerating by mouth well, denies chest pain, denies shortness of breath, denies nausea vomiting, and denies headache. Vital Signs Date Time Temp Pulse Resp B/P (MAP) Pulse Ox O2 Delivery O2 Flow Rate FiO2 08/16/17 06:12 98.5 81 18 112/68 (83) 95 Room Air 08/15/17 23:51 98.5 76 18 145/83 (103) 97 Room Air 08/15/17 18:29 98.2 72 20 144/88 (106) Room Air 08/15/17 13:00 98.2 75 20 122/65 (84) 99 Room Air 08/15/17 08:50 96.9 57 20 127/76 (93) 99 Room Air I & O 08/16/17 07:00 Intake Total 2250 ml Output Total 3250 ml Balance -1000 ml Vital signs are stable. Patient is afebrile. Abdomen is benign. The incision is clean dry and intact. Extremities show no clubbing or cyanosis. There is no Homans sign. There is some pretibial pitting edema that is normal. Assessment and plan postoperative day number 2 status post primary delivery. Plan is for routine convalescence care today and consider discharge home tomorrow STEPHANIE CLAYTON MD Aug 16, 2017 7:56 am
[2017-08-16] MEDS: DIAZEPAM 2 MG (VALIUM) TAB PO PRN ×3 (08:13→21:52)
[2017-08-16] MEDS: hydrOXYzine (VISTARIL) 25 MG CAP PO PRN ×2 (08:13→21:51)
[2017-08-16] MEDS: DOCUSATE SODIUM 100 MG (COLACE) CAP PO SCH ×2 (09:41→20:42)
[2017-08-16] MEDS: CEPHALEXIN 250 MG (KEFLEX) CAP PO SCH ×3 (09:42→20:42)
[2017-08-16 09:43] VITALS: BP 127/69
[2017-08-16 18:26] VITALS: BP 132/70
[2017-08-16 21:15] VITALS: BP 146/80
[2017-08-17 02:50] VITALS: BP 142/81
[2017-08-17] MEDS: oxyCODONE/APAP 10/325MG (PERCOCET 10) TABLET PO PRN ×3 (02:58→13:08)
[2017-08-17] MEDS: IBUPROFEN 800 MG (MOTRIN) TAB PO SCH ×3 (02:58→13:08)
[2017-08-17] MEDS ORDERED: TETANUS,DIPTH,PERTUSS P/F (BOOSTRIX) 0.5 ML VIAL IM ONE (07:58)
[2017-08-17] MEDS: hydrOXYzine (VISTARIL) 25 MG CAP PO PRN ×2 (08:06→13:08)
[2017-08-17] MEDS: DOCUSATE SODIUM 100 MG (COLACE) CAP PO SCH (08:06)
[2017-08-17] MEDS: DIAZEPAM 2 MG (VALIUM) TAB PO PRN ×2 (08:07→13:08)
[2017-08-17] MEDS: CEPHALEXIN 250 MG (KEFLEX) CAP PO SCH ×2 (08:08→13:10)
[2017-08-17 08:14] VITALS: BP 134/73
[2017-08-17] MEDS ORDERED: CEPH250C PO (09:54)
[2017-08-17] MEDS ORDERED: DOCU100C37 PO (09:54)
[2017-08-17] MEDS ORDERED: OXYC-465 PO (09:54)
--- NOTE | 2017-08-17 09:56 | Discharge Instructions ---
Discharge Instructions Discharge Medications New, Converted or Re-Newed RX: RX on Chart Patient Instructions Patient Instructions: as directed Return to The Hospital For: As directed Activity & Diet Discharge Diet: No Restrictions Activity as Tolerated: No Orders-Post D/C & Referrals Follow Up Appt: RTC on Saturday, August 23, 2017 at 930 a.m. for incision check. Call to make follow up appt. for patient in 4 weeks. Wound Care: Remove marcy, apply benzoin and steri strips. Activity Per routine post instructions. Please call in RX to patient pharmacy. Diet as tolerated Patient may shower or tub bathe as desired. Continue home meds STEPHANIE CLAYTON MD Aug 17, 2017 9:56 am
--- NOTE | 2017-08-17 09:59 | Discharge Summary ---
Discharge Summary Term primary delivery This patient is a 35-year-old primipara white female status post primary delivery. Her was complicated by significant benzodiazepine use from which she underwent a planned withdrawal in the . She is admitted for labor induction however she failed to make any progress at all through the day on Pitocin. Visual made to proceed with primary delivery. Postoperative day number 1 patient is ablating, voiding, tolerating by mouth well, had good pain control. She was stable through the day. On postoperative day number 2 the patient was unchanged. Now postoperative day number 3 patient is ambulating, voiding, tolerating by mouth well, has good pain control and is requesting discharge home. Physical diagnoses this hospitalization is a 38 week primary delivery Secondary diagnoses are bipolar disorder, failure to progress in labor, PIH Operation procedures include monitoring, Pitocin induction of labor, epidural analgesia, primary delivery Patient given appropriate discharge instructions verbally and writing copy those placed in chart. Discharge medications are Percocet and Motrin and Colace patient is continue her home medications Clinical Quality Measures DVT/VTE Risk/Contraindication: Risk Factor Score Per Nursin RFS Level Per Nursing on Admit: 2=Moderate STEPHANIE CLAYTON MD Aug 17, 2017 9:59 am
[2017-08-17] MEDS ORDERED: IBUP-1780 PO (11:40)
== END 2017-08-17 15:00 | disposition home or self-care (01) | DRG 766 ==
LOC: WSo 16:25 → LDRP 16:26 → WSo 17:42 → LDRP 17:52
PROVIDERS: ADMIT Obstetrics & Gynecology; ATTEND Obstetrics & Gynecology
PROC: 3E033VJ Introduction of Other Hormone into Peripheral Vein, Percutaneous Approach (ICD-10-PCS; 2017-08-14)
PROC: 10D00Z1 Extraction of Products of Conception, Low, Open Approach (ICD-10-PCS; principal; 2017-08-14 19:28)
DX: O13.4 Gestational [pregnancy-induced] hypertension without significant proteinuria, complicating childbirth (principal); O99.344 Other mental disorders complicating childbirth; F41.9 Anxiety disorder, unspecified; F31.9 Bipolar disorder, unspecified; O62.2 Other uterine inertia; Z37.0 Single live birth; Z3A.37 37 weeks gestation of pregnancy; Z23 Encounter for immunization
CPT/HCPCS: 36415; 80053; 81000; 82570; 83033; 83615; 84156; 85025; 87077; 87088; 87186; 90715; 94664; 99212

== ENCOUNTER 2018-01-05 18:15 | Emergency (ER) | payer MEDICAID ==
[~2018-01-05] VITALS: Ht 182.9 cm; Wt 81.9 kg
[~2018-01-05 18:15] MED LIST changes: +CEPH250C PO; +DOCU100C37 PO; +HYDR50TA76 PO; +IBUP-1780 PO; +OXYC-465 PO
[2018-01-05] MEDS ORDERED: KETOROLAC 30 MG/ML VIAL IVP ONE (18:30)
--- NOTE | 2018-01-05 18:31 | ED Chest Pain ---
General Stated Complaint: CHEST PAIN Source: patient Exam Limitations: no limitations History of Present Illness Date Seen by Provider: Jan 05, 2018 Time Seen by Provider: 18:29 Initial Comments to ER with reports of sharp stabbing left sided chest pain that began 2 hours ago. The pain seems to become worse with deep breathing. She also feels short of breath. She has a history of mitral valve prolapse. she is a smoker. No cough or fevers. Timing/Duration: 1-2 days Severity/Quality: moderate Radiation: no radiation Activities at Onset: none ASA po POSTING MACHINE OPERATOR: No NTG SL POSTING MACHINE OPERATOR: No Allergies and Home Medications Allergies Coded Allergies: Sulfa (Sulfonamide Antibiotics) (Unverified Adverse Reaction, Unknown, ) ciprofloxacin (Unverified Adverse Reaction, Unknown, 11/18/16) Home Medications Buspirone HCl 10 Mg Tablet, 20 MG PO BID, (Reported) Cephalexin 500 Mg Capsule, 500 MG PO QID, (Reported) Diazepam 5 Mg Tablet, 5 MG PO PRN, (Reported) Docusate Sodium 100 Mg Capsule, 100 MG PO BID Prescribed by: STEPHANIE GUZMÁN on 08/17/17 0954 Gabapentin 300 Mg/6 Ml Solution, 300 MG PO QID, (Reported) Hydroxyzine HCl 50 Mg Tablet, 50 MG PO Q6H, (Reported) Ibuprofen 800 Mg Tablet, 800 MG PO Q6H PRN for PAIN-MILD Prescribed by: PAIGE REDDY on 08/17/17 1140 Lurasidone HCl 40 Mg Tablet, 40 MG PO DAILY, (Reported) Mirtazapine 30 Mg Tablet, 30 MG PO DAILY, (Reported) Oxycodone HCl/Acetaminophen 1 Each Tablet, 1-2 TAB PO Q4HR PRN for PAIN- MODERATE TO SEVERE Prescribed by: STEPHANIE GUZMÁN on 08/17/17 0954 Vit/Iron Fumarate/FA 1 Each Tablet, 1 EACH PO DAILY, (Reported) Patient Home Medication List Home Medication List Reviewed: Yes Review of Systems Constitutional: see HPI EENTM: No Symptoms Reported Respiratory: No Symptoms Reported; Denies Cough; Shortness of Air Cardiovascular: See HPI, Chest Pain Gastrointestinal: No Symptoms Reported Genitourinary: No Symptoms Reported Musculoskeletal: no symptoms reported Skin: no symptoms reported Psychiatric/Neurological: No Symptoms Reported Endocrine: No Symptoms Reported Past Hvkbudx-Zlsgpa-Wepybi Hx Patient Social History Type Used: Cigarettes 2nd Hand Smoke Exposure: Yes Recent Foreign Travel: No Contact w/Someone Who Travel: No Recent Hopitalizations: No Immunizations Up To Date Tetanus Booster (TDap): Less than 5yrs Date of Influenza Vaccine: Aug 02, 2017 Seasonal Allergies Seasonal Allergies: No Past Medical History Surgeries: No Respiratory: No Cardiac: Yes (Mitral valve prolapse) Valvular Heart Disease Neurological: No Headaches /Migraines Genitourinary: No Kidney Infection Gastrointestinal: No Musculoskeletal: No Fractures Endocrine: No HEENT: No Cancer: No Psychosocial: Yes Anxiety, Depression Integumentary: No Blood Disorders: No Family Medical History Patient reports no known family medical history. Cancer, Psychiatric Problems, Other Conditions/Hx Physical Exam Vital Signs Capillary Refill : General Appearance: No Apparent Distress, WD/WN HEENT: PERRL/EOMI, TMs Normal Neck: Full Range of Motion, Normal Inspection Respiratory: Normal Breath Sounds, No Accessory Muscle Use, No Respiratory Distress Cardiovascular: Regular Rate, Rhythm, Normal Peripheral Pulses Gastrointestinal: Normal Bowel Sounds, Non Tender, Soft Neurologic/Psychiatric: Alert, Oriented x3 Skin: Normal Color, Warm/Dry Progress/Results/Core Measures Results/Orders Lab Results Laboratory Tests Test 01/05/18 18:35 01/05/18 20:30 Range/Units White Blood Count 6.2 4.3-11.0 10^3/uL Red Blood Count 4.18 L 4.35-5.85 10^6/uL Hemoglobin 11.8 11.5-16.0 G/DL Hematocrit 34 L 35-52 % Mean Corpuscular Volume 82 80-99 FL Mean Corpuscular Hemoglobin 28 25-34 PG Mean Corpuscular Hemoglobin Concent 34 32-36 G/DL Red Cell Distribution Width 17.4 H 10.0-14.5 % Platelet Count 331 130-400 10^3/uL Mean Platelet Volume 10.9 H 7.4-10.4 FL Neutrophils (%) (Auto) 52 42-75 % Lymphocytes (%) (Auto) 33 12-44 % Monocytes (%) (Auto) 10 0-12 % Eosinophils (%) (Auto) 5 0-10 % Basophils (%) (Auto) 1 0-10 % Neutrophils # (Auto) 3.2 1.8-7.8 X 10^3 Lymphocytes # (Auto) 2.0 1.0-4.0 X 10^3 Monocytes # (Auto) 0.6 0.0-1.0 X 10^3 Eosinophils # (Auto) 0.3 0.0-0.3 10^3/uL Basophils # (Auto) 0.0 0.0-0.1 10^3/uL Sodium Level 140 135-145 MMOL/L Potassium Level 4.4 3.6-5.0 MMOL/L Chloride Level 109 H 98-107 MMOL/L Carbon Dioxide Level 20 L 21-32 MMOL/L Anion Gap 11 5-14 MMOL/L Blood Urea Nitrogen 8 7-18 MG/DL Creatinine 0.72 0.60-1.30 MG/DL Estimat Glomerular Filtration Rate > 60 BUN/Creatinine Ratio 11 Glucose Level 102 70-105 MG/DL Calcium Level 9.7 8.5-10.1 MG/DL Total Bilirubin 0.3 0.1-1.0 MG/DL Aspartate Amino Transf (AST/SGOT) 15 5-34 U/L Alanine Aminotransferase (ALT/SGPT) 14 0-55 U/L Alkaline Phosphatase 66 40-136 U/L Troponin I < 0.30 <0.30 NG/ML Total Protein 6.6 6.4-8.2 GM/DL Albumin 4.5 3.2-4.5 GM/DL Urine Color YELLOW Urine Clarity CLEAR Urine pH 6.5 5-9 Urine Specific [place] 1.010 L 1.016-1.022 Urine Protein NEGATIVE NEGATIVE Urine Glucose (UA) NEGATIVE NEGATIVE Urine Ketones NEGATIVE NEGATIVE Urine Nitrite NEGATIVE NEGATIVE Urine Bilirubin NEGATIVE NEGATIVE Urine Urobilinogen NORMAL NORMAL MG/DL Urine Leukocyte Esterase 2+ H NEGATIVE Urine RBC (Auto) 1+ H NEGATIVE Urine RBC NONE /HPF Urine WBC 2-5 /HPF Urine Squamous Epithelial Cells 0-2 /HPF Urine Renal Epithelial Cells NONE /HPF Urine Crystals NONE /LPF Urine Bacteria NEGATIVE /HPF Urine Casts NONE /LPF Urine Mucus SMALL H /LPF Urine Culture Indicated NO My Orders Orders - SWATI TUCKER APRN Cbc With Automated Diff (01/05/18 18:26) Comprehensive Metabolic Panel (01/05/18 18:26) Ua Culture If Indicated (01/05/18 18:26) Drug Screen Stat (Urine) (01/05/18 18:26) Urine Bedside (01/05/18 18:26) Chest Pa/Lat (2 View) (01/05/18 18:26) Ekg Tracing (01/05/18 18:26) Troponin I (01/05/18 18:26) Ketorolac Injection (Toradol Injection) (01/05/18 18:30) Orphenadrine Injection (Norflex Injectio (01/05/18 20:15) Hcg,Qualitative Urine (01/05/18 20:46) Medications Given in ED Current Medications Medications Dose Ordered Sig/Cipriano Route Start Time Stop Time Status Last Admin Dose Admin Ketorolac Tromethamine 15 mg ONCE ONCE IVP 01/05/18 18:30 01/05/18 18:31 DC 01/05/18 18:53 15 MG Orphenadrine Citrate 60 mg ONCE ONCE IV 01/05/18 20:15 01/05/18 20:16 DC 01/05/18 20:21 60 MG Initial ECG Impression Date: Jan 05, 2018 Initial ECG Impression Time: 18:32 Initial ECG Rate: 54 Initial ECG Rhythm: Normal Sinus Initial ECG Intervals: Normal Diagnostic Imaging Diagonstic Imaging: Xray Plain Films/CT/US/NM/MRI: chest Comments cxr clear by my interpretation; radiology interpretation pending. Departure Impression Primary Impression: Pleuritic chest pain Disposition: 01 HOME, SELF-CARE Condition: Stable Departure-Patient Inst. Decision time for Depature: 21:00 Referrals: FREDRICK BONILLA (PCP/Family) Primary Care Physician Patient Instructions: Pleuritic Chest Pain (DC) Add. Discharge Instructions: 1. Antiinflammatories such as naproxen/ibuprofen as directed for pain 2. Return to ER for any concerns SWATI TUCKER APRN Jan 05, 2018 18:31
[2018-01-05 18:47] LABS: BASOPHILS % (AUTO) 1 % (0-10); EOSINOPHILS # (AUTO) 0.3 10^3/uL (0.0-0.3); EOSINOPHILS % (AUTO) 5 % (0-10); HEMATOCRIT 34 % (35-52); HEMOGLOBIN 11.8 G/DL (11.5-16.0); LYMPHOCYTES % (AUTO) 33 % (12-44); MEAN CORPUSCULAR HEMOGLOBIN 28 PG (25-34); MEAN CORPUSCULAR HGB CONC 34 G/DL (32-36); MEAN CORPUSCULAR VOLUME 82 FL (80-99); MEAN PLATELET VOLUME 10.9 FL (7.4-10.4); MONOCYTES # (AUTO) 0.6 X 10^3 (0.0-1.0); MONOCYTES % (AUTO) 10 % (0-12); NEUTROPHILS # (AUTO) 3.2 X 10^3 (1.8-7.8); NEUTROPHILS % (AUTO) 52 % (42-75); PLATELET COUNT 331 10^3/uL (130-400); RED BLOOD COUNT 4.18 10^6/uL (4.35-5.85); RED CELL DISTRIBUTION WIDTH 17.4 % (10.0-14.5); WHITE BLOOD COUNT 6.2 10^3/uL (4.3-11.0)
[2018-01-05 19:06] LABS: ALANINE AMINOTRANSFERASE 14 U/L (0-55); ALBUMIN 4.5 GM/DL (3.2-4.5); ALKALINE PHOSPHATASE 66 U/L (40-136); BILIRUBIN,TOTAL 0.3 MG/DL (0.1-1.0); BUN/CREATININE RATIO 11; CALCIUM 9.7 MG/DL (8.5-10.1); CARBON DIOXIDE 20 MMOL/L (21-32); CHLORIDE 109 MMOL/L (98-107); CREATININE SERUM 0.72 MG/DL (0.60-1.30); GFR ESTIMATED > 60; GLUCOSE 102 MG/DL (70-105); POTASSIUM 4.4 MMOL/L (3.6-5.0); SODIUM 140 MMOL/L (135-145); TOTAL PROTEIN 6.6 GM/DL (6.4-8.2)
[2018-01-05] MEDS ORDERED: ORPHENADRINE 60 MG/2 ML (NORFLEX) AMP IV ONE (20:15)
[2018-01-05 20:41] LABS: BILIRUBIN,URINE NEGATIVE (NEGATIVE); CLARITY,URINE CLEAR; COLOR,URINE YELLOW; GLUCOSE, URINE (UA) NEGATIVE (NEGATIVE); KETONES,URINE NEGATIVE (NEGATIVE); LEUKOCYTE ESTERASE ,URINE 2+ (NEGATIVE); NITRITE,URINE NEGATIVE (NEGATIVE); PH,URINE 6.5 (5-9); PROTEIN,URINE NEGATIVE (NEGATIVE); UROBILINOGEN,URINE NORMAL (NORMAL)
--- NOTE | 2018-01-05 20:56 | Diagnostic Imaging Report ---
INDICATION: Chest pain left-sided. EXAMINATION: Two-view chest 01/05/2018 COMPARISON: 12/03/2015 FINDINGS: There is atelectasis noted at left lung base. No effusions, infiltrates or pneumothorax. Biapical scarring noted. Heart and pulmonary vasculature are unremarkable. IMPRESSION: 1. Left base atelectasis towards the costophrenic angle with biapical scarring, otherwise negative chest. Dictated by: Dictated on workstation # [id number]
[2018-01-05 20:58] LABS: BACTERIA,URINE NEGATIVE /HPF; SQUAMOUS EPITHELIAL CELL,UR 0-2 /HPF
[2018-01-05 20:59] LABS: AMPHETAMINE SCREEN, URINE NEGATIVE (NEGATIVE); BARBITURATE SCREEN URINE NEGATIVE (NEGATIVE); BENZODIAZEPINES SCREEN URINE POSITIVE (NEGATIVE); CANNABINOID SCREEN, URINE NEGATIVE (NEGATIVE); COCAINE SCREEN URINE NEGATIVE (NEGATIVE); METHADONE STAT NEGATIVE (NEGATIVE); METHAMPHETAMINE SCREEN URINE S NEGATIVE (NEGATIVE); OPIATE SCREEN URINE NEGATIVE (NEGATIVE); OXYCODONE STAT NEGATIVE (NEGATIVE); PROPOXYPHENE STAT NEGATIVE (NEGATIVE); TRICYCLIC ANTIDEPRESSANTS SCRE POSITIVE (NEGATIVE)
[2018-01-05 21:07] VITALS: BP 112/72
== END 2018-01-05 21:07 | disposition home or self-care (01) ==
LOC: EDUNIT# 18:15 → ER 18:16
DX: R07.81 Pleurodynia (principal); G43.909 Migraine, unspecified, not intractable, without status migrainosus; F41.9 Anxiety disorder, unspecified; F32.9 Major depressive disorder, single episode, unspecified; Z87.448 Personal history of other diseases of urinary system; Z88.2 Allergy status to sulfonamides; Z88.1 Allergy status to other antibiotic agents; Z77.22 Contact with and (suspected) exposure to environmental tobacco smoke (acute) (chronic)
CPT/HCPCS: 36415; 71046; 80053; 80306; 81000; 84484; 84703; 85025; 93005; 96374; 96375

== ENCOUNTER 2019-09-01 10:45 | Emergency (ER) | payer MEDICAID ==
[~2019-09-01] VITALS: Ht 180 cm; Wt 74.0 kg
--- NOTE | 2019-09-01 10:54 | ED General ---
General Chief Complaint: General Problems/Pain Stated Complaint: SIDE PAIN Source of Information: Patient, EMS Exam Limitations: No Limitations History of Present Illness Date Seen by Provider: Sep 01, 2019 Time Seen by Provider: 10:52 Initial Comments To ER for EMS from home with reports of pain from the right posterolateral thorax down to the right flank. Began yesterday, palpation makes it worse, movement makes it worse, she's had a slight cough. She thought she might be getting a bladder infection yesterday, unsure. No injury. Timing/Duration: 1-2 Days Severity: Moderate Associated Systoms: Cough; No Fever/Chills, No Nausea/Vomiting Allergies and Home Medications Allergies Coded Allergies: Sulfa (Sulfonamide Antibiotics) (Unverified Adverse Reaction, Unknown, 11/18/16) ciprofloxacin (Unverified Adverse Reaction, Unknown, 11/18/16) Home Medications Buspirone HCl 10 Mg Tablet, 20 MG PO BID, (Reported) Diazepam 5 Mg Tablet, 5 MG PO PRN, (Reported) Docusate Sodium 100 Mg Capsule, 100 MG PO BID Prescribed by: STEPHANIE GUZMÁN on 08/17/17 0954 Gabapentin 300 Mg/6 Ml Solution, 300 MG PO QID, (Reported) Hydroxyzine HCl 50 Mg Tablet, 50 MG PO Q6H, (Reported) Ibuprofen 800 Mg Tablet, 800 MG PO Q6H PRN for PAIN-MILD Prescribed by: PAIGE REDDY on 08/17/17 1140 Lurasidone HCl 40 Mg Tablet, 40 MG PO DAILY, (Reported) Mirtazapine 30 Mg Tablet, 30 MG PO DAILY, (Reported) Vit/Iron Fumarate/FA 1 Each Tablet, 1 EACH PO DAILY, (Reported) Patient Home Medication List Home Medication List Reviewed: Yes Review of Systems Review of Systems Constitutional: see HPI EENTM: see HPI Respiratory: no symptoms reported Cardiovascular: no symptoms reported Genitourinary: no symptoms reported Musculoskeletal: see HPI Skin: no symptoms reported Psychiatric/Neurological: No Symptoms Reported Hematologic/Lymphatic: No Symptoms Reported Past Niwywxy-Sctcsb-Hawdca Hx Patient Social History Type Used: Cigarettes 2nd Hand Smoke Exposure: Yes Recent Hopitalizations: No Immunizations Up To Date Tetanus Booster (TDap): Unknown Date of Influenza Vaccine: Aug 02, 2017 Seasonal Allergies Seasonal Allergies: No Past Medical History Surgeries: No Respiratory: No Cardiac: Yes (Mitral valve prolapse) Valvular Heart Disease Neurological: No Headaches /Migraines Genitourinary: No Kidney Infection Gastrointestinal: No Musculoskeletal: No Fractures Endocrine: No HEENT: No Cancer: No Psychosocial: Yes Anxiety, Depression Integumentary: No Blood Disorders: No Family Medical History Patient reports no known family medical history. Cancer, Psychiatric Problems, Other Conditions/Hx Physical Exam Vital Signs Vital Signs - First Documented 09/01/19 10:45 Temp 37.2 Pulse 70 Resp 16 B/P (MAP) 119/63 (81) Pulse Ox 96 O2 Delivery Room Air Capillary Refill : Height, Weight, BMI Height: 6'0.00" Weight: 180lbs. 10.0oz. 81.162172ht; 32.9 BMI Method:Stated General Appearance: No Apparent Distress, WD/WN Eyes: Bilateral Eye Normal Inspection, Bilateral Eye PERRL, Bilateral Eye EOMI HEENT: PERRL/EOMI, TMs Normal Neck: Full Range of Motion, Normal Inspection Respiratory: No Accessory Muscle Use, No Respiratory Distress Cardiovascular: Regular Rate, Rhythm, Normal Peripheral Pulses Gastrointestinal: Non Tender, Soft Extremity: Normal Capillary Refill, Normal Inspection Neurologic/Psychiatric: Alert, Oriented x3 Skin: Normal Color, Warm/Dry Progress/Results/Core Measures Suspected Sepsis SIRS Temperature: Pulse: Respiratory Rate: Laboratory Tests 09/01/19 11:07: White Blood Count 7.7 Blood Pressure / Mean: Laboratory Tests 09/01/19 11:07: Creatinine 0.81, Platelet Count 295, Total Bilirubin 0.2 Results/Orders Lab Results Laboratory Tests Test 09/01/19 10:55 09/01/19 11:07 Range/Units Urine Color YELLOW Urine Clarity CLEAR Urine pH 7.0 5-9 Urine Specific [place] 1.010 L 1.016-1.022 Urine Protein NEGATIVE NEGATIVE Urine Glucose (UA) NEGATIVE NEGATIVE Urine Ketones NEGATIVE NEGATIVE Urine Nitrite NEGATIVE NEGATIVE Urine Bilirubin NEGATIVE NEGATIVE Urine Urobilinogen 0.2 < = 1.0 MG/DL Urine Leukocyte Esterase 1+ H NEGATIVE Urine RBC (Auto) NEGATIVE NEGATIVE Urine RBC RARE /HPF Urine WBC 0-2 /HPF Urine Squamous Epithelial Cells 0-2 /HPF Urine Crystals NONE /LPF Urine Bacteria TRACE /HPF Urine Casts NONE /LPF Urine Mucus NEGATIVE /LPF Urine Yeast FEW H /HPF Urine Culture Indicated YES Urine Opiates Screen NEGATIVE NEGATIVE Urine Oxycodone Screen NEGATIVE NEGATIVE Urine Methadone Screen NEGATIVE NEGATIVE Urine Propoxyphene Screen NEGATIVE NEGATIVE Urine Barbiturates Screen NEGATIVE NEGATIVE Ur Tricyclic Antidepressants Screen POSITIVE H NEGATIVE Urine Phencyclidine Screen NEGATIVE NEGATIVE Urine Amphetamines Screen NEGATIVE NEGATIVE Urine Methamphetamines Screen NEGATIVE NEGATIVE Urine Benzodiazepines Screen POSITIVE H NEGATIVE Urine Cocaine Screen NEGATIVE NEGATIVE Urine Cannabinoids Screen NEGATIVE NEGATIVE White Blood Count 7.7 4.3-11.0 10^3/uL Red Blood Count 3.85 L 4.35-5.85 10^6/uL Hemoglobin 10.6 L 11.5-16.0 G/DL Hematocrit 32 L 35-52 % Mean Corpuscular Volume 84 80-99 FL Mean Corpuscular Hemoglobin 28 25-34 PG Mean Corpuscular Hemoglobin Concent 33 32-36 G/DL Red Cell Distribution Width 16.0 H 10.0-14.5 % Platelet Count 295 130-400 10^3/uL Mean Platelet Volume 9.7 7.4-10.4 FL Neutrophils (%) (Auto) 54 42-75 % Lymphocytes (%) (Auto) 26 12-44 % Monocytes (%) (Auto) 10 0-12 % Eosinophils (%) (Auto) 10 0-10 % Basophils (%) (Auto) 1 0-10 % Neutrophils # (Auto) 4.2 1.8-7.8 X 10^3 Lymphocytes # (Auto) 2.0 1.0-4.0 X 10^3 Monocytes # (Auto) 0.8 0.0-1.0 X 10^3 Eosinophils # (Auto) 0.8 H 0.0-0.3 10^3/uL Basophils # (Auto) 0.0 0.0-0.1 10^3/uL Sodium Level 139 135-145 MMOL/L Potassium Level 4.1 3.6-5.0 MMOL/L Chloride Level 109 H 98-107 MMOL/L Carbon Dioxide Level 22 21-32 MMOL/L Anion Gap 8 5-14 MMOL/L Blood Urea Nitrogen 8 7-18 MG/DL Creatinine 0.81 0.60-1.30 MG/DL Estimat Glomerular Filtration Rate > 60 BUN/Creatinine Ratio 10 Glucose Level 123 H 70-105 MG/DL Calcium Level 8.4 L 8.5-10.1 MG/DL Corrected Calcium 8.2 L 8.5-10.1 MG/DL Total Bilirubin 0.2 0.1-1.0 MG/DL Aspartate Amino Transf (AST/SGOT) 15 5-34 U/L Alanine Aminotransferase (ALT/SGPT) 15 0-55 U/L Alkaline Phosphatase 97 40-136 U/L Total Protein 6.5 6.4-8.2 GM/DL Albumin 4.2 3.2-4.5 GM/DL Serum Test, Qualitative NEGATIVE NEGATIVE Serum Alcohol < 10 <10 MG/DL My Orders Orders - SWATI TUCKER APRN Cbc With Automated Diff (09/01/19 10:51) Comprehensive Metabolic Panel (09/01/19 10:51) Ua Culture If Indicated (09/01/19 10:51) Drug Screen Stat (Urine) (09/01/19 10:51) Alcohol (09/01/19 10:51) Chest Pa/Lat (2 View) (09/01/19 10:51) Hcg,Qualitative Serum (09/01/19 10:51) Ed Iv/Invasive Line Start (09/01/19 10:51) Ketorolac Injection (Toradol Injection) (09/01/19 11:00) Ns Iv 1000 Ml (Sodium Chloride 0.9%) (09/01/19 11:00) Urine Culture (09/01/19 10:55) Medications Given in ED Current Medications Medications Dose Ordered Sig/Cipriano Route Start Time Stop Time Status Last Admin Dose Admin Ketorolac Tromethamine 15 mg ONCE ONCE IVP 09/01/19 11:00 09/01/19 11:01 DC 09/01/19 11:33 15 MG Vital Signs/I&O 09/01/19 09/01/19 10:45 11:33 Temp 37.2 37.2 Pulse 70 Resp 16 B/P (MAP) 119/63 (81) Pulse Ox 96 O2 Delivery Room Air Capillary Refill : Departure Impression Primary Impression: Chest wall pain Disposition: HOME, SELF-CARE Condition: Stable Departure-Patient Inst. Decision time for Depature: 12:09 Referrals: FREDRICK BONILLA (PCP/Family) Primary Care Physician Patient Instructions: Chest Pain (DC) Add. Discharge Instructions: 1. Return to ER for any concerns 2. Follow-up with your doctor next week. Ibuprofen and naproxen anti- inflammatories for pain control. 3. All discharge instructions reviewed with patient and/or family. Voiced understanding. SWATI TUCKER APRN Sep 01, 2019 10:53
--- NOTE | 2019-09-01 10:57 | NUR ---
PT UP TO BATHROOM AT THIS TIME.
[2019-09-01] MEDS ORDERED: NS IV 1000 ML 1,000 ML IV SCH (11:00)
[2019-09-01] MEDS ORDERED: KETOROLAC 30 MG/ML VIAL IVP ONE (11:00)
[2019-09-01 11:05] LABS: BILIRUBIN,URINE NEGATIVE (NEGATIVE); CLARITY,URINE CLEAR; COLOR,URINE YELLOW; GLUCOSE, URINE (UA) NEGATIVE (NEGATIVE); KETONES,URINE NEGATIVE (NEGATIVE); LEUKOCYTE ESTERASE ,URINE 1+ (NEGATIVE); NITRITE,URINE NEGATIVE (NEGATIVE); PROTEIN,URINE NEGATIVE (NEGATIVE)
[2019-09-01 11:14] LABS: BASOPHILS % (AUTO) 1 % (0-10); EOSINOPHILS # (AUTO) 0.8 10^3/uL (0.0-0.3); EOSINOPHILS % (AUTO) 10 % (0-10); HEMATOCRIT 32 % (35-52); HEMOGLOBIN 10.6 G/DL (11.5-16.0); LYMPHOCYTES % (AUTO) 26 % (12-44); MEAN CORPUSCULAR HEMOGLOBIN 28 PG (25-34); MEAN CORPUSCULAR HGB CONC 33 G/DL (32-36); MEAN CORPUSCULAR VOLUME 84 FL (80-99); MEAN PLATELET VOLUME 9.7 FL (7.4-10.4); MONOCYTES # (AUTO) 0.8 X 10^3 (0.0-1.0); MONOCYTES % (AUTO) 10 % (0-12); NEUTROPHILS # (AUTO) 4.2 X 10^3 (1.8-7.8); NEUTROPHILS % (AUTO) 54 % (42-75); PLATELET COUNT 295 10^3/uL (130-400); WHITE BLOOD COUNT 7.7 10^3/uL (4.3-11.0)
[2019-09-01 11:33] LABS: RBC,URINE RARE /HPF; WBC,URINE 0-2 /HPF
[2019-09-01 11:34] LABS: BACTERIA,URINE TRACE /HPF; SQUAMOUS EPITHELIAL CELL,UR 0-2 /HPF; YEAST,URINE FEW /HPF
[2019-09-01 11:36] LABS: ALANINE AMINOTRANSFERASE 15 U/L (0-55); ALBUMIN 4.2 GM/DL (3.2-4.5); ALKALINE PHOSPHATASE 97 U/L (40-136); BILIRUBIN,TOTAL 0.2 MG/DL (0.1-1.0); BUN/CREATININE RATIO 10; CALCIUM 8.4 MG/DL (8.5-10.1); CARBON DIOXIDE 22 MMOL/L (21-32); CHLORIDE 109 MMOL/L (98-107); CREATININE SERUM 0.81 MG/DL (0.60-1.30); GFR ESTIMATED > 60; GLUCOSE 123 MG/DL (70-105); POTASSIUM 4.1 MMOL/L (3.6-5.0); SODIUM 139 MMOL/L (135-145); TOTAL PROTEIN 6.5 GM/DL (6.4-8.2)
--- NOTE | 2019-09-01 11:38 | Diagnostic Imaging Report ---
INDICATION: Chest pain. COMPARISON: January 05, 2018 TECHNIQUE: Two radiographs of the chest dated September 01, 2019. FINDINGS: The cardiac silhouette is within normal limits in size. No significant pulmonary vascular congestion. The lungs are clear of focal pulmonary opacity. No pleural effusion. No pneumothorax. No acute osseous abnormality. IMPRESSION: No acute cardiopulmonary abnormality. Dictated by: Dictated on workstation # [id number]
[2019-09-01 11:51] LABS: AMPHETAMINE SCREEN, URINE NEGATIVE (NEGATIVE); BARBITURATE SCREEN URINE NEGATIVE (NEGATIVE); BENZODIAZEPINES SCREEN URINE POSITIVE (NEGATIVE); CANNABINOID SCREEN, URINE NEGATIVE (NEGATIVE); COCAINE SCREEN URINE NEGATIVE (NEGATIVE); METHADONE STAT NEGATIVE (NEGATIVE); METHAMPHETAMINE SCREEN URINE S NEGATIVE (NEGATIVE); OPIATE SCREEN URINE NEGATIVE (NEGATIVE); OXYCODONE STAT NEGATIVE (NEGATIVE); PROPOXYPHENE STAT NEGATIVE (NEGATIVE); TRICYCLIC ANTIDEPRESSANTS SCRE POSITIVE (NEGATIVE)
[2019-09-01 12:34] VITALS: BP 122/71
== END 2019-09-01 12:38 | disposition home or self-care (01) ==
LOC: EDUNIT# 10:45 → ER 10:48
DX: R07.89 Other chest pain (principal); F41.9 Anxiety disorder, unspecified; F32.9 Major depressive disorder, single episode, unspecified; Z88.2 Allergy status to sulfonamides; Z88.1 Allergy status to other antibiotic agents; Z77.22 Contact with and (suspected) exposure to environmental tobacco smoke (acute) (chronic)
CPT/HCPCS: 36415; 71046; 80053; 80306; 80320; 81000; 84703; 85025; 87088; 96361; 96374